=== PATIENT | male | born 1945 | race Caucasian/White ===

== ENCOUNTER → 2024-05-24 | Outpatient (CLI) | payer MEDICARE, SELFPAY ==
[2024-05-24 12:29] LABS: Absolute Lymphocyte Count 1.85 X10^3/uL (0.83-4.51); Absolute Neutrophil Count 3.6 X10^3/uL (2.0-7.7); Basophil# 0.03 X10^3/uL; Basophil% 0.5 % (0-1); Eosinophil# 0.22 X10^3/uL; Eosinophils% 3.5 % (0-5); Hematocrit 44.4 % (40-54); Hemoglobin 14.5 g/dL (13.0-16.5); Lymphocyte # 1.85 X10^3/ul (0.83-4.51); Lymphocyte % 29.7 % (19-41); Mean Corp Hgb Conc 32.7 g/dL (32-36); Mean Corpuscular Hgb 29.1 pg (27.0-32.0); Mean Corpuscular Volume 89.2 fL (80-94); Mean Platelet Vol. 10.3 fl (6.2-12.0); Monocyte# 0.46 X10^3/uL; Monocyte% 7.4 % (0-10); NRBC Flagged by Analyzer 0 % (0-5); Neutrophil # 3.64 X10^3/uL (2.7-7.7); Neutrophil % 58.6 % (47-70); Platelet Count 156 K/mm3 (150-450); RBC Distribution Width CV 14.6 % (11.6-14.6); RBC Distribution Width SD 47.6 fl (35.1-43.9); Red Blood Count 4.98 M/mm3 (4.6-6.2); White Blood Count 6.2 K/mm3 (4.4-11.0)
[2024-05-24 12:50] LABS: ALB/GLOB Ratio 1.1 RATIO (0.9-2.4); AST(SGOT) 19 U/L (15-37); Alanine Aminotransfer ALT/SGPT 23 U/L (16-61); Albumin, Serum 3.5 g/dL (3.2-5.0); Alkaline Phosphatase 66 U/L (45-117); Anion Gap 4 (5-15); BUN 12 mg/dL (7-18); BUN/Creat Ratio 14.1 RATIO (10-20); Calcium,Total 8.7 mg/dL (8.5-10.1); Chloride 109 mmol/L (98-107); Creatinine, Serum 0.85 mg/dL (0.70-1.30); EST Glomerular Filtration Rate 92 mL/min (>60); Est Glom Filt Rate - Afr Amer 111 mL/min (>60); Globulin 3.3 g/dL (2.2-4.2); Glucose 100 mg/dL (74-106); Potassium 4.3 mmol/L (3.5-5.1); Protein, Total 6.8 g/dL (6.4-8.2); Sodium Level 141 mmol/L (136-145)
== END | disposition home or self-care (01) ==
PROVIDERS: PCP Physician Assistant; Referring Provider Physician Assistant; Visit Provider Physician Assistant
DX: E78.5 Hyperlipidemia, unspecified (principal)
CPT/HCPCS: 36415; 80053; 85025

== ENCOUNTER → 2024-06-01 | Outpatient (CLI) | payer MEDICARE, SELFPAY ==
[2024-06-01 12:43] LABS: Cholesterol 214 mg/dL (200); High Density Lipoprotein 54 mg/dL; Triglycerides 123 mg/dL; Very Low Density Lipoprotein 25 mg/dL (5-40)
== END | disposition home or self-care (01) ==
LOC: BIMLAB 09:50
PROVIDERS: PCP Physician Assistant; Referring Provider Physician Assistant; Visit Provider Physician Assistant
DX: E78.5 Hyperlipidemia, unspecified (principal)
CPT/HCPCS: 36415; 80061

== ENCOUNTER 2025-05-22 06:58 | Observation (INO) | payer MEDICARE, SELFPAY ==
--- NOTE | 2025-04-27 08:02 | EKG12_ITS ---
Test Reason : PREOP Blood Pressure : */* mmHG Vent. Rate : 70 BPM Atrial Rate : 70 BPM P-R Int : 174 ms QRS Dur : 88 ms QT Int : 378 ms P-R-T Axes : 16 -20 51 degrees QTcB Int : 408 ms Normal sinus rhythm Normal ECG Confirmed by PRISCILLA FORD, TOYIN ([id number]), publications editor FREDRICK SKY ([id number]) on 04/28/2025 9:55:16 AM Referred By: Omi Patel Confirmed By: TOYIN WELLS MD
[2025-04-27 09:40] LABS: Hematocrit 42.7 % (40-54); Hemoglobin 14.4 g/dL (13.0-16.5); Immature Granulocytes Count 0.020 X10^3/uL (0.0-0.0); Mean Corp Hgb Conc 33.7 g/dL (32-36); Mean Corpuscular Volume 86.8 fL (80-94); Mean Platelet Vol. 10.0 fl (6.2-12.0); NRBC Flagged by Analyzer 0 % (0-5); Platelet Count 165 K/mm3 (150-450); RBC Distribution Width CV 14.5 % (11.6-14.6); RBC Distribution Width SD 45.7 fl (35.1-43.9); Red Blood Count 4.92 M/mm3 (4.6-6.2); White Blood Count 7.1 K/mm3 (4.4-11.0)
[2025-04-27 10:35] LABS: Albumin, Serum 4.1 g/dL (3.4-4.8); Anion Gap 10 (5-15); BUN 12 mg/dL (4-19); BUN/Creat Ratio 14.6 RATIO (10-20); Calcium,Total 9.5 mg/dL (7.6-11.0); Carbon Dioxide 24.0 mmol/L (21.0-32.0); Chloride 107 mmol/L (98-108); Glucose 101 mg/dL (70-99); Potassium 4.2 mmol/L (3.3-5.1)
[2025-04-28 08:28] LABS: Magnesium 2.3 mg/dL (1.5-2.2)
--- NOTE | 2025-05-14 21:41 | PCM.HP.BLA ---
History and Physical History and Physical? Patient Name: Edmundo Peters : 1945From:? OLGA BEASLEY PA-C? DATE OF PRE-OPERATIVE EXAM: 05/12/2025 DATE OF SURGERY:? 05/22/2025 SCHEDULED PROCEDURE:? Direct anterior right total hip arthroplasty HISTORY OF PRESENT ILLNESS: Preoperative history and physical exam was performed on May 12, 2025.? This is an 80-year-old male who has had ongoing pain for years in his right hip.? Pain is been intermittent, aching, and stabbing.? Pain is increased with prolonged standing.? He has difficulty putting on his socks and shoes and getting dressed.? He feels unsafe carrying heavy items down steps.? Pain is located in the right groin and right anterior thigh.? He has been treated with a past chiropractor for unequal leg lengths.? He has had shoe lift on the right side.? He feels that the right leg is shorter than the left.? He does not recall any previous trauma.? Patient does report back in 2007 picking up a heavy object experiencing knee pain at that time.? He has also had ongoing right knee pain.? Patient has tried physical therapy, home exercises and respiratory care assistant with minimal relief.? He has tried heat, elevation with minimal relief.? Patient has attempted Tylenol and turmeric with only temporary relief.? He has history of gastroesophageal reflux disease and essential tremor.? Denies past history of DVT or pulmonary embolism.? Denies past history of surgery on the right hip.? Patient has obtain surgical clearance from the primary care provider Nicole Flynn.? After failing conservative measures and discussing all treatment options with Dr. Omi Patel, the patient does wish to proceed with a direct anterior right total hip arthroplasty. REVIEW OF SYSTEMS: Review Of Systems: Constitutional: Denies change in appetite, fever and weight change. Cardiovasular: Denies chest pain, heart murmur and irregular heartbeat. Respiratory: Reports cough and wheezing, but denies pneumonia, shortness of breath and tuberculosis. Gastrointestinal: Reports heartburn, but denies constipation, diarrhea, nausea, rectal itching, bloody stools and vomiting. Musculoskeletal: Reports gait disturbance, pain, trouble walking and weakness, but denies leg swelling. Skin: Denies Raynaud's, history of shingles and tattoo. Neurological: Reports tremor but denies ambulatory dysfunction, dizziness and numbness/tingling. Psychiatric: Reports life satisfaction and stress, but denies anxiety and insomnia. Hematologic/Lymphatic: Denies anemia, bleeding/bruising tendency and past transfusion. Reviewed, no changes. PAST MEDICAL HISTORY: Advance Care Plan: Other Directive, LIVING WILL Effective Date: 03/20/2025 Other Directive, POA Effective Date: 03/20/2025 Past Medical History: Medical Problems: Covid- 19 - (2021) resulted in a chronic cough and wheezing? essential tremor, stress, Acid Reflux Accidents: None Surgical Hx: Hernia Repair - (1969) Cataracts - (2009) Anesthesia Complications: None Assistive Devices: Glasses Reviewed, no changes. 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 Personal Habits:? Cigarette Use: Never Smoked Cigarettes.Smokeless Tobacco: Never Used Smokeless Tobacco.E-Cigarette Use: Never used.Alcohol: Denies use.Drug Use: Denies Use.Enjoy Exercising: Daily. Reviewed, no changes. VITALS: Ht: 67 Wt: 173lb Wt k.473 BMI: 27.1 BP: 130/70 Pulse: 65 Resp: 15 T: 97.9 T: 36.6C Pain Level: 2/10 O2SatR: 99 ALLERGIES: Penicillins Sulfa opioid anangesics? MEDICATIONS: Fish Oil 1000 mg 1 by mouth every day, Collagen 500-50-0.8 mg daily, Selenium 200 mcg daily, [place] Citrate 5 % daily, Kelp 0.15 mg daily, [place] Carbonate 150 mg daily, Magnesium 250 mg 1 a day, QC Tumeric Complex 500 mg daily, Zinc 15 66 (15 Zn) MG daily, Vitamin E 90 MG (200 Unit) daily, Vanadyl Sulfate Hydrate? daily, Chromium Vitamin? daily PRE-OP EXAM:? General appearance:NORMAL? ? ? Other: Eyes: Conjunctivae and lids: NORMAL? Pupils: ERR Ears, Nose, Mouth, and Throat: NORMAL? Other: Inspection of lips, teeth and gums: NORMAL? ?Other: Neck: Examination of neck: no masses noted. Respiratory: Assessment of respiratory effort: NORMAL? ?Other: ?Auscultation of lungs: clear to auscultation no wheezes, rhonchi or rales. Cardiovascular:? Auscultation of heart: regular rate and rhythm, no murmurs, gallops or rubs. PHYSICAL EXAMINATION: On exam patient does walk with an antalgic gait.? Right hip is without erythema or signs of infection.? Tenderness to palpation along the lateral hip at the greater trochanteric region.? Hip flexion 95 with obligatory external rotation.? Internal rotation 10 and 25 external rotation on the left.? Upon lying down supine patient has approximately 1 cm leg length discrepancy however I do feel hip flexion contracture as patient is unable to flatten the right leg. 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 CAM lesion on the right femur.? Right leg appears 3 mm shorter than the left. IMPRESSION: 1.? Severe right hip osteoarthritis 2.? Essential tremor 3.? Gastroesophageal reflux disease 4.? Overweight with BMI 27.1 PLAN: Dr. Omi Patel did discuss and review with the patient all treatment options including surgical versus nonsurgical options.? I will continue plan established by Dr. Omi Patel.? Patient does wish to proceed with the above-stated procedure.? Potential risks, benefits, and complications of the procedure were discussed in detail including but not limited to , infection, nerve and blood vessel damage, persistent pain, numbness, tingling, paresthesias, blood clot, pulmonary embolism, and requirement for possible further surgery.? The patient expressed full understanding and has no further questions for the doctor.? Patient does agree to proceed with the above-stated procedure and has signed the surgery consent form. POST-OP MEDICATION PLAN: Pain Medications: Postoperative pain regimen will be initiated by Dr. Omi Patel in the hospital.? Patient states he has sensitivity to opioids.? I did advise him that we will try to use Tylenol and nonsteroidal anti-inflammatory for her primary pain control.? However we may need to use narcotic for breakthrough pain based on his pain levels.? He did voice understanding.? Patient has walker that he will bring to the hospital.? He has obtain surgical clearance. DVT Prophylaxis Plan:? Aspirin 81 mg twice daily for 4 weeks postoperatively.? Denies past history of DVT or pulmonary embolism.? Continue with JEN janine for 2 weeks postoperatively. This dictation was created using voice recognition software. Phonetic and/or grammatical errors may exist. ___? I have re-examined the patient.? There are no clinical changes since date of exam. ___? See progress notes for changes. ___? Dictated on admission Date: ? ? ?Time: Signature:
[2025-05-22] VITALS (12 sets, daily range): BP systolic 90–133; BP diastolic 66–84; PULSE 55–79; RESP 16–18; TEMP 36.2–36.9; O2SAT 96–100; BMI 25.9; BMI 26.0
--- OUTSIDE RECORDS SUMMARY | 2025-05-22 05:11 | XMS RPT_ITS | CCD ---
Author Organization [facility] Inform ion [facility] Care Team Providers Care Veterinary Pharmacologist Name Role Phone MAGED FORD, DR ALDAIR Gutiérrez Primary Care Physician HARRY HILL DO Primary Care Physician HARRY HILL DO Attending Unavailable HARRY HILL DO Primary Care Unavailable DELORIS MELVIN-PCB DESIGN ENGINEER, GEOFF Valadez Attending Un available MAGED FORD, DR ALDAIR Gutiérrez Primary Care Unavaila NICOLE Austin Attending Unavailable GREGORIO HAYWOOD Primary Care Unavailable NICOLE FLYNN Referring Unavailable GREGORIO HAYWOOD Primary Care Unavailable NICOLE FLYNN Attending Unavailable GREGORIO HAYWOOD Primary Care Unavailable Gee CHECKOUT SUPERVISOR, Nicole Primary Care Unavailable Omi Patel Attending Unavailable Omi Patel Referring Unavailable Aminah CANO, Jeyson Attending Unavailable Aminah CANO, Jeyson Referring Unavailable Aminah CANO, Jeyson Primary Care Unavailable Aminah CANO, Jeyson Attending Unavailable Aminah ACNO, Jeyson Referring Unavailable Aminah CANO, Jeyson Primary Care Unavailable Aminah CANO, Jeyson Attending Unavailable Aminah CANO, Jeyson Referring Unavailable Aminah CANO, Jeyson Primary Care Unavailable Allergies Allergy Classification Reported Allergen(s) Allergy Type Date of Onset Reaction(s) Facility (2 sources) Codeine; Translations: [codeine] Drug Allergy [facility] (2 sources) Penicillin; Translations: [penicillins] Drug Allergy [facility] (2 sources) Sulfonamides (Antibiotic); Translations: [sulfa drugs] Propensity to adverse reactions to drug [facility] (2 sources) Penicillins; Translations: [PENICILLINS] Propensity to adverse reactions to drug (disorder) 5 [facility] (2 sources) Sulfonamides (Antibiotic); Translations: [SULFA (SULFONAMIDE ANTIBIOTICS)] Propensity to adverse reactions to drug (disorder) 5 [facility] (1 source) Codeine Drug Allergy 5 [facility] Medications Current Medications Medication Drug Class(es) Dates Sig (Normalized) Sig (Original) acetaminophen 325 mg oral capsule (2 sources) Start: 04-08-2021 Tylenol 325 mg oral capsule Dose : 650 mg =, Oral, q4h, PRN Pain, scale 4-10, 0 Refill(s) Start Date: 04/08/21 Status: Ordered albuterol MDI (90 mcg/inh) CFC free inhalation aerosol (2 sources) Start: 07-09-2023 take 2 puff(s) by inhalation every four hours as needed for wheezing albuterol MDI (90 mcg/inh) CFC free inhalation aerosol 2 puff(s), Inhalation, q4h, PRN as needed for wheezing, # 18 gram(s), 11 Refill(s), Pharmacy: [facility]/pharmacy #[id number], Shortness of breath, 173.4, cm, 07/09/23 9:02:00 EST, Height, kg, 07/09/23 9:02:00 EST, Dosing Weight Start Date: 07/09/23 Status: Ordered Start: 04-01-2021 take 2 puff(s) by in halation every four hours as needed for wheezing albuterol MDI (90 mcg/inh) CFC free inhalation aerosol 2 puff(s), Inhalation, q4h, PRN as needed for wheezing, # 18 gram(s), 0 Refill(s), Pharmacy: [facility], Shortness of breath, 175, cm, 04/01/21 11:00:00 EDT, Height, kg, 04/01/21 11:00:00 EDT, Dosing Weight Start Date: 04/01/21 Status: Ordered Calcium (1 source) Phosphate Binder, Calcium Start: 08-05-2019 calcium (as carbonate) 600 mg oral tablet Dose : 600 mg = 1 tab(s), Oral, Daily, 0 Refill(s) Start Date: 08/05/19 Status: Ordered calcium carbonate 1500 mg oral tablet (1 source) Start: 08-05-2019 calcium (as carbonate) 600 mg oral tablet Dose : 600 mg = 1 tab(s), Oral, Daily, 0 Refill(s) Start Date: 08/05/19 Status: Ordered copper glycinate-zinc glycinate (2 sources) Start: 09-01-2019 take 1 capsule by mouth once daily copper glycinate-zinc glycinate Dose = 1 cap(s), Oral, qDay, 0 Refill(s) Start Date: 09/01/19 Status: Ordered Flonase 50 mcg/inh nasal spray (1 source) Start: 09-01-2019 take 1 dose nasal route once daily in the morning Flonase 50 mcg/inh nasal spray Dose = 2 spray(s), Nostril, each, qAM, # 9.9 mL, 11 Refill(s), Pharmacy: [facility], 174.5, cm, 09/01/19 9:11:00 EST, Height, kg, 09/01/19 9:11:00 EST, Dosing Weight Start Date: 09/01/19 Status: Ordered fluticasone propionate 0.05 mg/actuat metered dose nasal spray (1 source) Corticosteroid Start: 09-12-2021 take 1 dose nasal route once daily in the morning Flonase 50 mcg/inh nasal spray Dose = 2 spray(s), Nostril, each, qAM, # 9.9 mL, 11 Refill(s), Pharmacy: [facility], 175, cm, 09/12/21 9:22:00 EDT, Height, kg, 09/12/21 9:22:00 EDT, Dosing Weight Start Date: 09/12/21 Status: Ordered 12 hr guaiFENesin 1200 mg extended release oral tablet (2 sources) Start: 04-18-2021 take 1 mg by mouth every twelve hours Mucinex Max Strength 1200 mg oral tablet, extended release mg = tab(s), Oral, q12h, 0 Refill(s) Start Date: 04/18/21 Status: Ordered Magnesium (1 source) Start: 08-05-2019 Magnesium 250 mg tablet Dose : 250 mg = 1 tab(s), Oral, qDay, 0 Refill(s) Start Date: 08/05/19 Status: Ordered magnesium oxide 250 mg oral tablet (1 source) Start: 08-05-2019 Magnesium 250 mg tablet Dose : 250 mg = 1 tab(s), Oral, qDay, 0 Refill(s) Start Date: 08/05/19 Status: Ordered selenium 200 mcg oral tablet (2 sources) Start: 08-05-2019 selenium 200 mcg oral tablet Dose : 200 mcg = 1 tab(s), Oral, Daily, 0 Refill(s) Start Date: 08/05/19 Status: Ordered sildenafil 20 mg oral tablet (1 source) Phosphodiesterase 5 Inhibitor Start: 08-05-2019 take 1-5 tablets by mouth once daily as needed sildenafil 20 mg oral tablet See Instructions, Take 1 to 5 pills daily as needed for ED, # 30 tab(s), 5 Refill(s), Pharmacy: [facility], 174, cm, 08/05/19 11:00:00 EST, Height, kg, 08/05/19 11:00:00 EST, Dosing Weight Start Date: 08/05/19 Status: Ordered Vitamin D3 (2 sources) Start: 08-05-2019 Vitamin D3 Dose : 5,000 unit(s) = 1 cap(s), Oral, qWeek, 0 Refill(s) Start Date: 08/05/19 Status: Ordered Completed/Discontinued Medications Medication Drug Class(es) Dates Sig (Normalized) Sig (Original) apixaban 2.5 mg oral tablet (1 source) Factor Xa Inhibitor Start: 04-08-2021 End: 04-22-2021 Eliquis 2.5 mg oral tablet Dose : 2.5 mg = 1 tab(s), Oral, BID, # 28 tab(s), 0 Refill(s), Pharmacy: [facility], 175.3, cm, 04/02/21 21:15:00 EDT, Height, 70.6, kg, 04/02/21 21:15:00 EDT, Dosing Weight Start Date: 04/08/21 Stop Date: 04/22/21 Status: Ordered Problems Problem Classification Problem Date Documented Da te Episodic/Chronic Disorders of lipid metabolism (3 sources) Pure hypercholesterolemi a; Translations: [Hyperlipidemia, unspecified] Onset: 11-09-2024 08-05-2019 Chronic Heart valve disorders (2 sources) Mitral valve disorder 08-05-2019 Chronic Hyperplasia of prostate (1 source) Nocturia due to benign prostatic hypertrophy 06-17-2021 Chronic Osteoarthritis (3 sources) Degenerative joint disease involving multiple joints; Translations: [Unilateral primary osteoarthritis, right hip] Onset: 04-03-2025 08-05-2019 Chronic Other hereditary and degenerative nervous system conditions (2 sources) 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 Other male genital disorders (2 sources) Impotence 08-05-2019 Chronic Other male genital disorders (2 sources) Problem of prostate 08-05-2019 Episodic Other screening for suspected conditions (not mental disorders or infectious disease) (5 sources) Decreased testosterone level ; Translations: [Encounter for screening for lipoid disorders] Onset: 04-03-2025 08-05-2019 Episodic Screening and history of mental health and substance abuse codes (2 sources) Encounter for screening examination for other mental health and behavioral disorders; Translations: [Encounter for screening for depression] Onset: 04-03-2025 Episodic Unclassified (1 source) 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 Unclassified (1 source) Patient encounter status 04-29-2023 Unclassified (1 source) Pre-Op Exam Onset: 05-02-2025 Results Test Name Value Interpretation Reference Range Facility [facility] 05-02-2025 CNOV Office Visit (INTMWS ) CHAYO HALE ([id number]) 1945 M Date Time Provider Department 05/02/25 1:20 PM NICOLE FLYNN INTMWS During your visit today, we recorded the following information about you: Temperature Pulse Respiration Blood pressure 97.9 degrees 86/minute 14/minute 122/74 Weight 80.2 kg Nicole Flynn, SLOTTER OPERATOR.PCB DESIGN ENGINEER 05/02/2025 1:47 PM Signed 1CC: Patient presents with: Pre-Op Exam: Right hip-[place] ortho HPI Chayo Hale is a 80 year old male who presents today for pre-op evaluation. Surgical Procedure: anterior right total hip arthroplasty Date of Procedure: 05/22/25 Surgeon: Omi Patel MD PAT date: 04/25, 05/12 Diabetes No Hypertension requiring medication No Congestive Heart Failure No Current Smoker within 1 Year No COPD/asthma No RIVAS No Dialysis No Acute renal failure No Steroid use for chronic condition No Disseminated cancer No Review of Systems Constitutional: Negative for appetite change, chills, diaphoresis, fatigue and unexpected weight change. Respiratory: Negative for cough, chest tightness, shortness of breath and wheezing. Cardiovascular: Negative for chest pain, palpitations and leg swelling. Neurological: Negative for dizziness, syncope, weakness, light-headedness and headaches. History reviewed. No pertinent past medical history. PAST SURGICAL HISTORY Procedure Laterality Date REPAIR UMBILICAL HERNIA 1974 ALLERGIES Penicillins and Sulfa (Sulfonamide Antibiotics) MEDICATIONS ergocalciferol, vitamin D2, (VITAMIN D2 PO) Take 5,000 Units by mouth once daily. FISH OIL-DHA-EPA PO Take 2,000 mg by mouth once daily. COQ10, UBIQUINOL, PO Take 200 mg by mouth once daily. COLLAGEN MISC 1,000 mg once daily. SELENIUM PO Take 200 mg by mouth once daily. KELP PO Take 150 mcg by mouth once daily. Mccarthy Aspartate 5 mg cap Take 5 mg by mouth once daily. BORON ORAL Take 3 mg by mouth once daily. magnesium oxide (MAG-CAPS ORAL) Take 400 mg by mouth once daily. TURMERIC PO Take 500 mg by mouth once daily. ZINC ACETATE PO Take 50 mg by mouth once daily. VITAMIN E-400 ORAL Take 400 mg by mouth once daily. vanadyl sulfate (VANADYL ORAL) Take 10 mg by mouth once daily. CHROMIUM ORAL Take 200 mg by mouth once daily. albuterol HFA (PROVENTIL HFA) 90 mcg/actuation inhaler Inhale 2 puffs as instructed every 4 hours as needed for wheezing/shortness of breath. FAMILY HISTORY Problem Relation Age of Onset Arthritis Mother SOCIAL HISTORY[1] BP 122/74 Pulse 86 Temp 36.6 ?C (97.9 ?F) (Temporal) Resp 14 Wt 80.2 kg (176 lb 12.9 oz) SpO2 99% BMI 26.95 kg/m? Physical Exam Vitals reviewed. Constitutional: Appearance: Normal appearance. HENT: Head: Normocephalic and atraumatic. Mouth/Throat: Mouth: Mucous membranes are moist. Pharynx: Oropharynx is clear. Eyes: Conjunctiva/sclera: Conjunctivae normal. Cardiovascular: Rate and Rhythm: Normal rate and regular rhythm. Pulses: Normal pulses. Heart sounds: Normal heart sounds. No murmur heard. Pulmonary: Effort: Pulmonary effort is normal. Breath sounds: Normal breath sounds. No wheezing, rhonchi or rales. Abdominal: Palpations: Abdomen is soft. Tenderness: There is no abdominal tenderness. Lymphadenopathy: Cervical: No cervical adenopathy. Skin: General: Skin is warm and dry. Neurological: Mental Status: He is alert. Psychiatric: Mood and Affect: Mood normal. Diagnoses/Plan 1. Pre-operative evaluation Reviewed PAT results including EKG, CBC and BMP; results all normal There is no known pertinent medical condition which may affect jaki-operative course SOLIS risk: Patient is scheduled for a intermediate-risk procedure. Risk of 0.1% calculated using the NSQIP surgical risk calculator ASA class: ASA 1- Normal healthy patient Functional status: Independent The patient is medically optimized for surgery Nicole Flynn APRN.PCB DESIGN ENGINEER [1] Social History Tobacco Use Smoking status: Never Smokeless tobacco: Never Vaping Use Vaping status: Never Used Substance Use Topics Alcohol use: Never Drug use: Never Allergies As of Date: 05/02/2025 Noted Allergy Reaction PENICILLINS 04/03/2025 4 - Hives SULFA (SULFONAMIDE ANTIBIOTICS) 04/03/2025 8 - GI Upset Date Reviewed: 05/02/2025 Reviewed by: Nicole Flynn APRN.PCB DESIGN ENGINEER - Fully Assessed Reason for Visit: Pre-Op Exam [87] Cmt: Right hip-[place] ortho Primary Visit Diagnosis:Preop exam for internal medicine [Z01.818] Prescriptions as of 05/02/2025 - ergocalciferol, vitamin D2, (VITAMIN D2 PO) Take 5,000 Units by mouth once daily. - FISH OIL-DHA-EPA PO Take 2,000 mg by mouth once daily. - COQ10, UBIQUINOL, PO Take 200 mg by mouth once daily. - COLLAGEN MISC 1,000 mg once daily. - SELENIUM PO Take 200 mg by mouth once daily. - KELP PO Take 150 mcg by mouth once daily (more content not included)... Normal [facility] MRSA/SAID NASAL SCREENon MRSA+SAID SCRN Reason for Exam: PREOP MRSA MRSA Negative S. AUREUS S. aureus Negative Normal [facility] Comment on above: Performed By: #### L 100.0100, L500.2500, L501.1800, M100.651 #### [facility] [address] [place], [address] Magnesiumon 04-28-2025 Magnesium [Mass/Vol] 2.3 mg/dL High 1.5-2.2 [facility] Comment on above: Performed By: #### L 501.5200 #### [facility] [address] [place], [place], [id number] 12 Lead EKGon 04-27-2025 12 Lead EKG [facility] [address] [place] [address] 12 Lead EKG 04/27/25 0815 MR#: [id number] Acct: [id number] Name: CHAYO HALE Rep #: [id number] : 1945 80 From: Adarsh Morley MD Attending Dr: Dr. Omi Patel MD Status: PRE [facility] Order[facility] Dr: Omi Patel MD Date: 04/27/25 Location: [facility] Sex: M C Admitted: Test Reason : PREOP Blood Pressure : */* mmHG Vent. Rate : 70 BPM Atrial Rate : 70 BPM P-R Int : 174 ms QRS Dur : 88 ms QT Int : 378 ms P-R-T Axes : 16 -20 51 degrees QTcB Int : 408 ms Normal sinus rhythm Normal ECG Confirmed by ADARSH MORLEY MD ([id number]), society editor FREDRICK SKY ([id number]) on 04/28/2025 9:55:16 AM Referred By: Omi Patel Confirmed By: ADARSH MORLEY MD 04/28/25 0955 Date Adarsh Morley MD CC: HERLINDA Rivera Older; Dr. Omi Patel MD Signed Normal [facility] Albumin, Serumon 04-27-2025 Albumin [Mass/Vol] 4.1 g/dL Normal 3.4-4.8 [facility] Comment on above: Performed By: #### L 100.0100, L500.2500, L501.1800, M100.651 #### [facility] [address] [place], [address] Basic Metabolic Profile (BMP )on 04-27-2025 BUN/CRE 14.6 RATIO Normal - [facility] Comment on above: Performed By: #### L 100.0100, L500.2500, L501.1800, M100.651 #### [facility] [address] [place], [address] Calcium [Mass/Vol] 9.5 mg/dL Normal 7.6-11.0 [facility] Comment on above: Performed By: #### L 100.0100, L500.2500, L501.1800, M100.651 #### [facility] [address] [place], [address] Chloride [Moles/Vol] 107 mmol/L Normal 98-108 [facility] Comment on above: Performed By: #### L 100.0100, L500.2500, L501.1800, M100.651 #### [facility] [address] [place], [address] CO2 [Moles/Vol] 24.0 mmol/L Normal 21.0-32.0 [facility] Comment on above: Performed By: #### L 100.0100, L500.2500, L501.1800, M100.651 #### [facility] [address] [place], [address] Creatinine [Mass/Vol] 0.82 mg/dL Normal 0.70-1.20 [facility] Comment on above: Performed By: #### L 100.0100, L500.2500, L501.1800, M100.651 #### [facility] [address] [place], [address] GAP 10 Normal 5-15 [facility] Comment on above: Performed By: #### L 100.0100, L500.2500, L501.1800, M100.651 #### [facility] [address] [place], [address] GFR/1.73 sq M.predicted among non-blacks MDRD (S/P/Bld) [Vol rate/Area] 88 mL/min/{1.73_m2} Normal >60 [facility] Comment on above: Result Comment: mL/m in/1.73m2 CKD-EPI Creatinine Equation (2020) Performed By: #### L 100.0100, L500.2500, L501.1800, M100.651 #### [facility] [address] [place], [address] Glucose [Mass/Vol] 101 mg/dL High 70-99 [facility] Comment on above: Performed By: #### L 100.0100, L500.2500, L501.1800, M100.651 #### [facility] [address] [place], [address] Potassium [Moles/Vol] 4.2 mmol/L Normal 3.3-5.1 [facility] Comment on above: Performed By: #### L 100.0100, L500.2500, L501.1800, M100.651 #### [facility] [address] [place], [address] Sodium [Moles/Vol] 141 mmol/L Normal 133-145 [facility] Comment on above: Performed By: #### L 100.0100, L500.2500, L501.1800, M100.651 #### [facility] [address] [place], [address] Urea nitrogen [Mass/Vol] 12 mg/dL Normal 4-19 [facility] Comment on above: Performed By: #### L 100.0100, L500.2500, L501.1800, M100.651 #### [facility] [address] [place], [address] CBC W/Diff, Automatedon 10-3 0-2025 Absolute Lymph 1.50 X10 3/uL Normal 0.83-4.51 [facility] Comment on above: Performed By: #### L 100.0100, L500.2500, L501.1800, M100.651 #### [facility] [address] [place], [address] Absolute Neut 4.7 X10 3/uL Normal 2.0-7.7 [facility] Comment on above: Performed By: #### L 100.0100, L500.2500, L501.1800, M100.651 #### [facility] [address] [place], [address] Basophils/100 WBC (Bld) 0.8 % Normal 0-1 [facility] Comment on above: Performed By: #### L 100.0100, L500.2500, L501.1800, M100.651 #### [facility] [address] [place], [address] Eosinophils/100 WBC (Bld) 3.4 % Normal 0-5 [facility] Comment on above: Performed By: #### L 100.0100, L500.2500, L501.1800, M100.651 #### [facility] [address] [place], [address] Erythrocyte distribution width (RBC) [Ratio] 14.5 % Normal 11.6-14.6 [facility] Comment on above: Performed By: #### L 100.0100, L500.2500, L501.1800, M100.651 #### [facility] [address] [place], [address] Hematocrit (Bld) [Volume fraction] 42.7 % Normal 40-54 [facility] Comment on above: Performed By: #### L 100.0100, L500.2500, L501.1800, M100.651 #### [facility] [address] [place], [address] Hemoglobin (Bld) [Mass/Vol] 14.4 g/dL Normal 13.0-16.5 [facility] Comment on above: Performed By: #### L 100.0100, L500.2500, L501.1800, M100.651 #### [facility] [address] [place], [address] IG% 0.300 Normal 0.0-0.9 [facility] Comment on above: Result Comment: IG% - Immature Granulocytes (promyelocytes, myelocytes and metamyelocytes) > 1% indicates that a LEFT SHIFT is Present. Performed By: #### L 100.0100, L500.2500, L501.1800, M100.651 #### [facility] [address] [place], [address] Lymphocytes/100 WBC (Bld) 21.1 % Normal 19-41 [facility] Comment on above: Performed By: #### L 100.0100, L500.2500, L501.1800, M100.651 #### [facility] [address] [place], [address] MCH (RBC) [Entitic mass] 29.3 pg Normal 27.0-32.0 [facility] Comment on above: Performed By: #### L 100.0100, L500.2500, L501.1800, M100.651 #### [facility] [address] [place], [address] MCHC (RBC) [Mass/Vol] 33.7 g/dL Normal 32-36 [facility] Comment on above: Performed By: #### L 100.0100, L500.2500, L501.1800, M100.651 #### [facility] [address] [place], [address] MCV (RBC) [Entitic vol] 86.8 fL Normal 80-94 [facility] Comment on above: Performed By: #### L 100.0100, L500.2500, L501.1800, M100.651 #### [facility] [address] [place], [address] Monocytes/100 WBC (Bld) 7.6 % Normal 0-10 [facility] Comment on above: Performed By: #### L 100.0100, L500.2500, L501.1800, M100.651 #### [facility] [address] [place], [address] Neutrophils/100 WBC (Bld) 66.8 % Normal 47-70 [facility] Comment on above: Performed By: #### L 100.0100, L500.2500, L501.1800, M100.651 #### [facility] [address] [place], [address] Nucleated RBC (Bld) [#/Vol] 0 10*3/uL Normal 0-5 [facility] Comment on above: Performed By: #### L 100.0100, L500.2500, L501.1800, M100.651 #### [facility] [address] [place], [address] Platelet mean volume (Bld) [Entitic vol] 10.0 fL Normal 6.2-12.0 [facility] Comment on above: Performed By: #### L 100.0100, L500.2500, L501.1800, M100.651 #### [facility] [address] [place], [address] Platelets (Bld) [#/Vol] 165 10*3/uL Normal 150-450 [facility] Comment on above: Performed By: #### L 100.0100, L500.2500, L501.1800, M100.651 #### [facility] [address] [place], [address] RBC (Bld) [#/Vol] 4.92 10*6/uL Normal 4.6-6.2 [facility] Comment on above: Performed By: #### L 100.0100, L500.2500, L501.1800, M100.651 #### [facility] [address] [place], [address] RDW SD 45.7 fl High 35.1-43.9 [facility] Comment on above: Performed By: #### L 100.0100, L500.2500, L501.1800, M100.651 #### [facility] [address] [place], [address] WBC (Bld) [#/Vol] 7.1 10*3/uL Normal 4.4-11.0 [facility] Comment on above: Performed By: #### L 100.0100, L500.2500, L501.1800, M100.651 #### [facility] [address] [place], [address] Comprehensive metabolic 2000 panelon 04-04-2025 Albumin [Mass/Vol] 4.1 g/dL Normal 3.9-4.9 [facility] Comment on above: Order Comment: Speci men Type: BLOOD SPECIMEN Ordering Facility: [facility] Address: [address] [place] [address] Performed By: #### 2 4331-1, 67871-4 #### [facility] CLIA [id number] [address] [place] [address] [place] ALP [Catalytic activity/Vol] 69 U/L Normal 38-113 [facility] Comment on above: Order Comment: Speci men Type: BLOOD SPECIMEN Ordering Facility: [facility] Address: [address] [place] [address] Performed By: #### 2 4331-1, 01559-9 #### [facility] CLIA [id number] [address] [place], [place] [id number] [place] ALT [Catalytic activity/Vol] 18 U/L Normal 10-54 [facility] Comment on above: Order Comment: Speci men Type: BLOOD SPECIMEN Ordering Facility: [facility] Address: [address] [place] [address] Performed By: #### 2 4331-1, 21453-5 #### [facility] CLIA [id number] [address] [place], [place] [id number] [place] Anion gap [Moles/Vol] 12 mmol/L Normal 8-[address] [facility] Comment on above: Order Comment: Speci men Type: BLOOD SPECIMEN Ordering Facility: [facility] Address: [address] [place] [address] Performed By: #### 2 4331-1, 14745-2 #### [facility] CLIA [id number] [address] [place], [place] [id number] [place] AST [Catalytic activity/Vol] 26 U/L Normal 14-40 [facility] Comment on above: Order Comment: Speci men Type: BLOOD SPECIMEN Ordering Facility: [facility] Address: [address] [place], [place] [address] Performed By: #### 2 4331-1, 10522-4 #### [facility] CLIA [id number] [address] [place], [place] [id number] [place] Bilirubin [Mass/Vol] 0.9 mg/dL Normal 0.2-1.3 [facility] Comment on above: Order Comment: Speci men Type: BLOOD SPECIMEN Ordering Facility: [facility] Address: [address] [place] [address] Performed By: #### 2 4331-1, 78454-9 #### [facility] CLIA [id number] [address] [place] [address] [place] Calcium [Mass/Vol] 9.5 mg/dL Normal 8.5-10.2 [facility] [facility] Comment on above: Order Comment: Speci men Type: BLOOD SPECIMEN Ordering Facility: [facility] Address: [address] [place] [address] Performed By: #### 2 4331-1, 33058-6 #### [facility] CLIA [id number] [address] [place] [address] [place] Chloride [Moles/Vol] 106 mmol/L Normal 98-107 [facility] Comment on above: Order Comment: Speci men Type: BLOOD SPECIMEN Ordering Facility: [facility] Address: [address] [place] [address] Performed By: #### 2 4331-1, 35209-7 #### [facility] CLIA [id number] [address] [place] [address] [place] CO2 [Moles/Vol] 24 mmol/L Normal 22-30 [facility] Comment on above: Order Comment: Speci men Type: BLOOD SPECIMEN Ordering Facility: [facility] Address: [address] [place] [address] Performed By: #### 2 4331-1, 08471-3 #### [facility] CLIA [id number] [address] [place] [address] [place] Creatinine [Mass/Vol] 0.93 mg/dL Normal 0.73-1.[address] [facility] Comment on above: Order Comment: Speci men Type: BLOOD SPECIMEN Ordering Facility: [facility] Address: [address] [place] [address] Performed By: #### 2 4331-1, 01325-3 #### [facility] CLIA [id number] [address] [place] [address] [place] eGFRcr SerPlBld CKD-EPI 2020 82 mL/min/1.73m??? Normal >=60 [facility] Comment on above: Order Comment: Dorie cullen Type: BLOOD SPECIMEN Ordering Facility[facility] Address: [address] [place] [address] Result Comment: Theresa mated Glomerular Filtration Rate (eGFR) is calculated using the 2020 CKD-EPI creatinine equation. This equation utilizes serum creatinine, sex, and age as parameters. The creatinine assay has traceable calibration to isotope dilution-mass spectrometry. Refer to KDIGO guidelines for clinical interpretation. In patients with unstable renal function, e.g. those with acute kidney injury, the eGFR may not accurately reflect actual GFR. Performed By: #### 2 4331-1, 67550-0 #### [facility] CLIA [id number] [address] [place] [address] [place] Glucose [Mass/Vol] 92 mg/dL Normal 74-99 [facility] Comment on above: Order Comment: Dorie cullen Type: BLOOD SPECIMEN [facility] Address: [address] [place] [address] Result Comment: The [place] Diabetes Association (ADA) provides guidance for cutoff values for fasting glucose and random glucose. The ADA defines fasting as no caloric intake for at least 8 hours. Fasting plasma glucose results between 100 to 125 mg/dL indicate increased risk for diabetes (prediabetes). Fasting plasma glucose results greater than or equal to 126 mg/dL meet the criteria for diagnosis of diabetes. In the absence of unequivocal hyperglycemia, results should be confirmed by repeat testing. In a patient with classic symptoms of hyperglycemia or hyperglycemic crisis, random plasma glucose results greater than or equal to 200 mg/dL meet the criteria for diagnosis of diabetes. Reference: Standards of Medical Care in Diabetes 2016, [place] Diabetes Association. Diabetes Care. 2016.39(Suppl 1). Performed By: #### 2 4331-1, #### [facility] CLIA [id number] [address] [place] [address] [place] Potassium [Moles/Vol] 4.4 mmol/L Normal 3.7-5.[address] [facility] Comment on above: Order Comment: Speci men Type: BLOOD SPECIMEN [facility] Facility[facility] Address: [address] [place] [address] Performed By: #### 2 4331-, #### [facility] CLIA [id number] [address] [place], [place] [id number] [place] Protein [Mass/Vol] 6.7 g/dL Normal 6.3-8.0 [facility] Comment on above: Order Comment: Speci men Type: BLOOD SPECIMEN [facility] Address: [address] [place] [address] Performed By: #### 2 4331-, #### [facility] CLIA [id number] [address] [place], [place] [id number] [place] Sodium [Moles/Vol] 142 mmol/L Normal 136-144 [facility] Comment on above: Order Comment: Speci men Type: BLOOD SPECIMEN [facility] Address: [address] [place] [address] Performed By: #### 2 4331-, #### [facility] CLIA [id number] [address] [place] [address] [place] Urea nitrogen [Mass/Vol] 12 mg/dL Normal 9-24 [facility] Comment on above: Order Comment: Speci men Type: BLOOD SPECIMEN Ordering Facility[facility] Address: [address] [place], [place] [address] Performed By: #### 2 4331-1, #### [facility] CLIA [id number] [address] [place], [place] [id number] [place] Lipid 1996 panelon 5 Cholesterol [Mass/Vol] 213 mg/dL High <200 [facility] Comment on above: Order Comment: Speci men Type: BLOOD SPECIMEN Ordering Facility[facility] Address: [address] [place] [address] Result Comment: <200 mg/dL, Desirable 200-239 mg/dL, Borderline high >239 mg/dL, High Performed By: #### 2 4331-1, 17841-8 #### [facility] CLIA [id number] [address] [place] [address] [place] Cholesterol in HDL [Mass/Vol] 51 mg/dL Normal >39 [facility] Comment on above: Order Comment: Dionisioi men Type: BLOOD SPECIMEN Order[facility] Address: [address] [place] [address] Result Comment: 40-5 9 mg/dL, Acceptable >59 mg/dL, High: Negative risk factor for coronary heart disease <40 mg/dL, Low: Positive risk factor for coronary heart disease Performed By: #### 2 4331-1, 92086-2 #### [facility] CLIA [id number] [address] [place] [address] [place] Cholesterol in LDL [Mass/Vol] 147 mg/dL High <100 [facility] Comment on above: Order Comment: Speci men Type: BLOOD SPECIMEN Order[facility] Address: [address] [place] [address] Result Comment: <100 mg/dL, Optimal 100-129 mg/dL, Near optimal/above optimal 130-159 mg/dL, Borderline high 160-189 mg/dL, High >189 mg/dL, Very high Secondary prevention optimal LDL Cholesterol levels are recommended to be <70 mg/dL LDL cholesterol is calculated using the Short-NIH equation. Performed By: #### 2 4331-1, 98576-7 #### [facility] CLIA [id number] [address] [place] [address] [place] Cholesterol in LDL/Cholesterol in HDL [Mass ratio] 2.88 {ratio} High <2.54 [facility] Comment on above: Order Comment: Dorie cullen Type: BLOOD SPECIMEN Order[facility] Address: [address] [place] [address] Result Comment: Malik epstein: 1. National Cholesterol Education Program ATP III Guideline At-A-Glance Quick Desk Reference: National Heart, Lung, and Blood [place]. National Institutes of Health. 2001: NIH Publication No. 01-3305. 2. An International Atherosclerosis Society position paper: global recommendations for the management of dyslipidemia: executive summary, Atherosclerosis. 2014: 232(2):410-413. Performed By: #### 2 4331-1, 33486-9 #### [facility] CLIA [id number] [address] [place] [address] [place] Cholesterol in VLDL [Mass/Vol] 15 mg/dL Normal <30 [facility] Comment on above: Order Comment: Dorie cullen Type: BLOOD SPECIMEN [facility] Address: [address] [place] [address] Performed By: #### 2 4331-1, 96192-5 #### [facility] CLIA [id number] [address] [place] [address] [place] Cholesterol non HDL [Mass/Vol] 162 mg/dL High <130 [facility] Comment on above: Order Comment: Dorie cullen Type: BLOOD SPECIMEN Order[facility] Address: [address] [place] [address] Result Comment: <130 mg/dL, Optimal 130-159 mg/dL, Near optimal/above optimal 160-189 mg/dL, Borderline high 190-219 mg/dL, High >219 mg/dL, Very high Secondary prevention optimal non HDL Cholesterol levels are recommended to be <100 mg/dL Performed By: #### 2 4331-1, 98526-8 #### [facility] CLIA [id number] [address] [place] [address] [place] Cholesterol.total/Cho lesterol in HDL [Mass ratio] 4.18 {ratio} Normal <5.10 [facility] Comment on above: Order Comment: Speci men Type: BLOOD SPECIMEN [facility] Address: [address] [place] [address] Performed By: #### 2 4331-1, 92014-2 #### [facility] CLIA [id number] [address] [place] [address] [place] FASTING TIME 12 hrs Normal [facility] Comment on above: Order Comment: Speci men Type: BLOOD SPECIMEN [facility] Address: [address] [place] [address] Performed By: #### 2 4331-1, 81032-4 #### [facility] CLIA [id number] [address] [place] [address] [place] Triglyceride [Mass/Vol] 83 mg/dL Normal <150 [facility] Comment on above: Order Comment: Speci men Type: BLOOD SPECIMEN Order[facility] Address: [address] [place] [address] Result Comment: <150 mg/dL, Normal 150-199 mg/dL, Borderline high 200-499 mg/dL, High >499 mg/dL, Very high Performed By: #### 2 4331-1, 99151-6 #### [facility] CLIA [id number] [address] [place] [address] [place] CNOVon 04-03-2025 CNOV Office Visit (INTMWS ) CHAYO HALE ([id number]) 1945 [place] Date Time Provider Department 04/03/25 10:00 AM NICOLE FLYNN INTMWS During your visit today, we recorded the following information about you: Pulse Respiration Blood pressure Weight 76/minute 14/minute 128/84 79.7 kg Height 1.725 m Nicole Flynn, OLEGARIO.PCB DESIGN ENGINEER 04/03/2025 10:37 AM Signed Chayo Hale is a 80 year old male here for a Medicare wellness visit. Medicare Health Risk Assessment General Health Excellent Exercise: Minutes/Day 40 min Exercise: Days/Week 7 days Alcohol: Daily Use Monthly or less Alcohol: Drinks/Day 1 or 2 Alcohol: 6 or more drinks Never Feel off balance No Concerns: Teeth/Dentures No Concerns: Sexual function No Troubled by feelings None of the above Frequency: Eating healthy diet Nearly every day ADLs requiring help None of the above Safety precautions in home/vehicle Yes Smoke, vape, chews tobacco No Difficulty hearing Yes Difficulty seeing No Current Providers Specialists: I have reviewed specialist-related care of the patient in the medical record. Current care team: Patient Care Team: Gregorio Haywood MD as PCP - General (Internal Medicine) [facility] Medical/Family history review Reviewed and updated problem list, medical/surgical/fami ly/social history, medications, and allergies. Opioid use review Opioid Medications (last 90 days) No data to display Anxiety/Depression screening PHQ-2 Score: 0 (Lower risk for depression) TREMAINE-2 Score: 0 (Lower risk for anxiety) Recommendation: no further intervention at this time Cognitive screening Cognitive screening reviewed and Patient declined Mini-Cog test. Functional Observation Was the patient's Timed Up AND Go test unsteady or >= 12 seconds? No Advance Care Planning Patient was not able to provide a surrogate decision maker or written advance directives Measurements BP 132/80 Pulse 76 Resp 14 Ht 172.5 cm (5' 7.91) Wt 79.7 kg (175 lb 11.3 oz) SpO2 97% BMI 26.78 kg/m? Vision Screening: Follows with optometry/ophthalmolo gy Assessment/Plan Medicare annual wellness visit, subsequent (00.) - Counseled on healthy diet and regular exercise - Fall avoidance information provided - Personalized prevention plan provided 2. Arthritis of right hip: Patient reports right hip pain from ?bone on bone? changes and has an appointment on the with [facility] for possible surgical intervention. 3. Encounter for screening examination for other mental health and behavioral disorders: TREMAINE=0 4. Screening for depression: PHQ=0 5. Encounter for lipid screening for cardiovascular disease: Fasting lipid panel ordered 6. Encounter for screening for diabetes mellitus: Fasting blood work ordered Prescription instructions reviewed with patient as applicable. Potential red flag symptoms discussed with the patient. Reviewed appropriate action plan to take if red flag symptoms occur. Patient agreeable to treatment plan. YANET Sheppard Naz M, APRN.CNP 04/03/2025 10:29 AM Addendum WHAT YOU CAN DO TO PREVENT FALLS Many falls can be prevented. By making some changes, you can lower your chances of falling. Four things YOU can do to prevent falls for you* and your caregiver 1. Begin a regular exercise program Exercise is one of the most important ways to lower your chances of falling. It makes you stronger and helps you feel better. Exercises that improve balance and coordination (like Ran Chi) are the most helpful. Lack of exercise leads to weakness and increases your chances of falling. Ask your doctor or health care provider about the best type of exercise program for you. 2. Have your health care provider review your medicines Have your doctor or pharmacist review all the medicines you take, even ermk-lay-zqwwxbu medicines. As you get older, the way medicines work in your body can change. Some medicines, or combinations of medicines, can make you sleepy or dizzy and can cause you to fall. 3. Have your vision checked Have your eyes checked by an eye doctor at least once a year. You may be wearing the wrong glasses or have a condition like glaucoma or cataracts that limits your vision. Poor vision can increase your chances of falling. 4. Make your home safer About half of all falls happen at home. To make your home safer: Remove things you can trip over (like papers, books, clothes, and shoes) from stairs and places where you walk. Remove small throw rugs or use double-sided tape to keep the rugs from slipping. Keep items you use often in cabinets you can reach easily without using a step stool. Have grab bars put in next to your toilet and in the tub or shower. Use non-slip mats in the bathtub and on shower floors. Improve the light (more content not included)... Normal [facility] Internal Medicine Office Vis richar 06-01-2024 Internal Medicine Office Visit [facility] [address] [place], [place] [address] OFFICE VISIT Date of Service: 06/01/24 MR#: [id number] Acct: [id number] Name: CHAYO HALE Rep #: [id number] : 1945 Provider: RACHAEL Crook Age/Sex: 79/M Location: [facility] Status: Signed Intake Vital Signs 12/15/23 10:56 06/01/24 08:55 Height 5 ft 9 in 5 ft 9 in Weight: 176 lb 4 oz 171 lb BMI 26.0 25.2 BP 124/68 H 118/78 Blood Pressure Location Lt brachial Lt brachial Position Sitting Sitting Respiration 16 16 Pulse 72 77 Pulse Source Monitor Monitor Temp 97.4 F L 97.6 F L Temp Source Temporal Temporal Pulse Oximetry (%) 99 99 Oxygen Delivery Method room air room air Intake Visit Reasons: FOLLOW UP 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 Accompanied by: Self Is patient in pain?: No Allergies codeine Allergy (Mild, Verified 06/01/24 08:51) hives Penicillins Allergy (Mild, Verified 06/01/24 08:51) hives Sulfa (Sulfonamide Antibiotics) (sulfa drugs) Allergy (Mild, Verified 06/01/24 08:51) hives Medications ???Medication ???Instructions ???Recorded ???Confirmed ???Type albuterol sulfate 90 mcg/actuation inhalation 12/15/23 06/01/24 History aerosol inhaler cholecalciferol (vitamin D3) 25 25 mcg PO DAILY 12/15/23 06/01/24 History mcg (1,000 unit) capsule coenzyme Q10 75 mg capsule (Ultra 75 mg PO DAILY 12/15/23 06/01/24 History CoQ10) collagen,hydrolysate 500 mg-biotin cap PO 12/15/23 06/01/24 History 800 mcg-ascorbic acid 50 mg capsule (Collagen 1500 Plus C) ferrous sulfate 325 mg (65 mg 325 mg PO DAILY 12/15/23 06/01/24 History iron) tablet (Iron (ferrous sulfate)) magnesium aspart,citrate,oxide mg PO 12/15/23 06/01/24 History omega 7-skd-nbs-fish oil 60 mg-90 1 cap PO DAILY 12/15/23 06/01/24 History mg-500 mg capsule (Fish Oil) selenium 200 mcg capsule 200 mcg PO DAILY 12/15/23 06/01/24 History turmeric PO 12/15/23 06/01/24 History vitamin E mixed 400 unit capsule unit PO 12/15/23 06/01/24 History zinc glycinate 20 mg capsule 20 mg PO DAILY 12/15/23 06/01/24 History Have you fallen in the past year?: No PFSH Surgical History H/O eye surgery H/O hernia repair Family History Brother Cancer skin, prostate,bone Social History household members: spouse housing: house current occupational status: retired Smoking Status: Never smoker alcohol intake: never substance use type: does not use what type of physical activity do you participate in: walking 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 He states that he has been taking fish oil and actually increased the fish oil. Patient states that overall he is doing great without any concerns or complaints. Patient states that he continues with his supplement regimen taking multiple vitamin supplements which he states he is done for quite a long time. He remains very physically active especially for his age doing both cardiorespiratory activities as well as weight training. 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 As discussed before is a very healthy diet eating really no processed or ultra processed meals doing lots of continued fruits and vegetables. 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 He does think though that maybe he has a little bit of a tremor from the pesticides. Patient did have recent blood work done and would like to go over that today (I do see though that the lipid was not done which is really probably the most important thing we wanted to see). Patient did have some questions regarding testosterone at his age. He was not sure that this is something that he should have checked or not. Also on his labs a year ago there was a PSA done and therefore has been a year since he had that done ROS Const Constitutional: No body ache, chills, excessive sweating, fatigue, fever(s), frequent falls, headache(s), snoring, weakness or change in appetite Eyes Eyes: No blurry vision, change in vision, eye pain or Light sensitivity ENT ENT: No abnormal hearing, ear or mastoid pain, tinnitus, nasal congestion, headache(s), neck pain or sore throat Resp Respiratory: No cough, shortness of breath, snoring or wheezing Cardio Cardiology: No ch (more content not included)... Normal [facility] Lipid Profileon 06-01-2024 Cholesterol [Mass/Vol] 214 mg/dL High 200 [facility] Comment on above: Result Comment: <200 mg/dL Desirable 200-240 mg/dL Borderline >240 mg/dL High Risk Performed By: #### L 500.4100 #### [facility] [address] [place], [address] Cholesterol in HDL [Mass/Vol] 54 mg/dL Normal [facility] Comment on above: Result Comment: The drugs N-Acetylcysteine and Metamizole may falsely depress this assay. Reference Range HDL <40 mg/dL Low HDL Cholesterol HDL >or= 60 mg/dL High HDL Cholesterol Performed By: #### L 500.4100 #### [facility] [address] [place], [address] Cholesterol in LDL [Mass/Vol] 135 mg/dL High 0-130 [facility] Comment on above: Performed By: #### L 500.4100 #### [facility] [address] [place], [address] Cholesterol in VLDL [Mass/Vol] 25 mg/dL Normal 5-40 [facility] Comment on above: Performed By: #### L 500.4100 #### [facility] [address] [place], [address] Triglyceride [Mass/Vol] 123 mg/dL Normal [facility] Comment on above: Result Comment: The drugs N-Acetylcysteine and Metamizole may falsely depress this assay. Serum Triglycerides Reference Interval Normal <150 mg/dL Borderline high 150 - 199 mg/dL High 200 - 499 mg/dL Very High > or = 500 mg/dL Performed By: #### L 500.4100 #### [facility] [address] [place], [address] CBC W/Diff, Automatedon 11- Absolute Lymph 1.85 X10 3/uL Normal 0.83-4.51 [facility] Comment on above: Performed By: #### L 100.0100, L500.4050 #### [facility] [address] [place], [address] Absolute Neut 3.6 X10 3/uL Normal 2.0-7.7 [facility] Comment on above: Performed By: #### L 100.0100, L500.4050 #### [facility] [address] [place], [address] Basophils/100 WBC (Bld) 0.5 % Normal 0-1 [facility] Comment on above: Performed By: #### L 100.0100, L500.4050 #### [facility] [address] [place], [address] Eosinophils/100 WBC (Bld) 3.5 % Normal 0-5 [facility] Comment on above: Performed By: #### L 100.0100, L500.4050 #### [facility] [address] [place], [address] Erythrocyte distribution width (RBC) [Ratio] 14.6 % Normal 11.6-14.6 [facility] Comment on above: Performed By: #### L 100.0100, L500.4050 #### [facility] [address] [place], [address] Hematocrit (Bld) [Volume fraction] 44.4 % Normal 40-54 [facility] Comment on above: Performed By: #### L 100.0100, L500.4050 #### [facility] [address] [place], [address] Hemoglobin (Bld) [Mass/Vol] 14.5 g/dL Normal 13.0-16.5 [facility] Comment on above: Performed By: #### L 100.0100, L500.4050 #### [facility] [address] [place], [address] IG% 0.300 Normal 0.0-0.9 [facility] Comment on above: Result Comment: IG% - Immature Granulocytes (promyelocytes, myelocytes and metamyelocytes) > 1% indicates that a LEFT SHIFT is Present. Performed By: #### L 100.0100, L500.4050 #### [facility] [address] [place], [address] Lymphocytes/100 WBC (Bld) 29.7 % Normal 19-41 [facility] Comment on above: Performed By: #### L 100.0100, L500.4050 #### [facility] [address] [place], [address] MCH (RBC) [Entitic mass] 29.1 pg Normal 27.0-32.0 [facility] Comment on above: Performed By: #### L 100.0100, L500.4050 #### [facility] [address] [place], [address] MCHC (RBC) [Mass/Vol] 32.7 g/dL Normal 32-36 [facility] Comment on above: Performed By: #### L 100.0100, L500.4050 #### [facility] [address] [place], [address] MCV (RBC) [Entitic vol] 89.2 fL Normal 80-94 [facility] Comment on above: Performed By: #### L 100.0100, L500.4050 #### [facility] [address] [place], [address] Monocytes/100 WBC (Bld) 7.4 % Normal 0-10 [facility] Comment on above: Performed By: #### L 100.0100, L500.4050 #### [facility] [address] [place], [address] Neutrophils/100 WBC (Bld) 58.6 % Normal 47-70 [facility] Comment on above: Performed By: #### L 100.0100, L500.4050 #### [facility] [address] [place], [address] Nucleated RBC (Bld) [#/Vol] 0 10*3/uL Normal 0-5 [facility] Comment on above: Performed By: #### L 100.0100, L500.4050 #### [facility] [address] [place], [address] Platelet mean volume (Bld) [Entitic vol] 10.3 fL Normal 6.2-12.0 [facility] Comment on above: Performed By: #### L 100.0100, L500.4050 #### [facility] [address] [place], [address] Platelets (Bld) [#/Vol] 156 10*3/uL Normal 150-450 [facility] Comment on above: Performed By: #### L 100.0100, L500.4050 #### [facility] [address] [place], [address] RBC (Bld) [#/Vol] 4.98 10*6/uL Normal 4.6-6.2 [facility] Comment on above: Performed By: #### L 100.0100, L500.4050 #### [facility] [address] [place], [address] RDW SD 47.6 fl High 35.1-43.9 [facility] Comment on above: Performed By: #### L 100.0100, L500.4050 #### [facility] [address] [place], [address] WBC (Bld) [#/Vol] 6.2 10*3/uL Normal 4.4-11.0 [facility] Comment on above: Performed By: #### L 100.0100, L500.4050 #### [facility] [address] [place], [address] Comprehensive Metabolic Prof [facility] [place] 05-24-2024 Albumin [Mass/Vol] 3.5 g/dL Normal 3.2-5.0 [facility] Comment on above: Performed By: #### L 100.0100, L500.4050 #### [facility] [address] [place], [address] Albumin/Globulin [Mass ratio] 1.1 {ratio} Normal 0.9-2.4 [facility] Comment on above: Performed By: #### L 100.0100, L500.4050 #### [facility] [address] [place], [address] ALK P 66 U/L Normal 45-117 [facility] Comment on above: Performed By: #### L 100.0100, L500.4050 #### [facility] [address] [place], [address] ALT [Catalytic activity/Vol] 23 U/L Normal 16-61 [facility] Comment on above: Performed By: #### L 100.0100, L500.4050 #### [facility] [address] [place], [address] AST [Catalytic activity/Vol] 19 U/L Normal 15-37 [facility] Comment on above: Performed By: #### L 100.0100, L500.4050 #### [facility] [address] [place], [address] Bilirubin [Mass/Vol] 0.90 mg/dL Normal 0.20-1.00 [facility] Comment on above: Result Comment: For patients on eltrombopag therapy, use of Dimension [place] TBIL is not recommended. Performed By: #### L 100.0100, L500.4050 #### [facility] [address] [place], [address] BUN/CRE 14.1 RATIO Normal 10-20 [facility] Comment on above: Performed By: #### L 100.0100, L500.4050 #### [facility] [address] [place], [address] CA,Total 8.7 mg/dL Normal 8.5-10.1 [facility] Comment on above: Performed By: #### L 100.0100, L500.4050 #### [facility] [address] [place], [address] Chloride [Moles/Vol] 109 mmol/L High 98-107 [facility] Comment on above: Performed By: #### L 100.0100, L500.4050 #### [facility] [address] [place], [address] CO2 [Moles/Vol] 28.0 mmol/L Normal 21.0-32.0 [facility] Comment on above: Performed By: #### L 100.0100, L500.4050 #### [facility] [address] [place], [address] Creatinine [Mass/Vol] 0.85 mg/dL Normal 0.70-1.30 [facility] Comment on above: Result Comment: The validity of the calculated GFR GFRAA in patients over 70 years has not been determined. Clinical correlation is essential. Performed By: #### L 100.0100, L500.4050 #### [facility] [address] [place], [address] EST GFR - AA 111 mL/min Normal >60 [facility] Comment on above: Result Comment: Afri can Trinidadian GFR Calc Performed By: #### L 100.0100, L500.4050 #### [facility] [address] [place], [address] GAP 4 Low 5-15 [facility] Comment on above: Performed By: #### L 100.0100, L500.4050 #### [facility] [address] [place], [address] GFR/1.73 sq M.predicted among non-blacks MDRD (S/P/Bld) [Vol rate/Area] 92 mL/min/{1.73_m2} Normal >60 [facility] Comment on above: Result Comment: Non- GFR Calc Performed By: #### L 100.0100, L500.4050 #### [facility] [address] [place], [address] Globulin (S) [Mass/Vol] 3.3 g/dL Normal 2.2-4.2 [facility] Comment on above: Performed By: #### L 100.0100, L500.4050 #### [facility] [address] [place], [address] Glucose [Mass/Vol] 100 mg/dL Normal 74-106 [facility] Comment on above: Result Comment: Fast ing Glucose result from 100 to 125 mg/dL suggests IMPAIRED HOMEOSTASIS per A.D.A. criteria. Performed By: #### L 100.0100, L500.4050 #### [facility] [address] [place], [address] Potassium [Moles/Vol] 4.3 mmol/L Normal 3.5-5.1 [facility] Comment on above: Performed By: #### L 100.0100, L500.4050 #### [facility] [address] [place], [address] Sodium [Moles/Vol] 141 mmol/L Normal 136-145 [facility] Comment on above: Performed By: #### L 100.0100, L500.4050 #### [facility] [address] [place], [address] T PROT 6.8 g/dL Normal 6.4-8.2 [facility] Comment on above: Performed By: #### L 100.0100, L500.4050 #### [facility] [address] [place], [address] Urea nitrogen [Mass/Vol] 12 mg/dL Normal 7-18 [facility] Comment on above: Performed By: #### L 100.0100, L500.4050 #### [facility] [address] [place], [address] TFTESTon 10-24-2023 Free Testost Direct 5.7 pg/mL Low 6.6-18.1 [facility] ([place]) Comment on above: Result Comment: Perf ormed At: [facility] [address] [place], [place] [id number] Pancho Lee MD Ph:[phone] Performed At: [facility] [address] [place], [place] [id number] Kelsea Canada PhD Ph:[phone] Performed By: #### F ERR, FES, VIDH, LIPID, [id number], [id number] #### [facility] [address] [place], [place] [address] #### FOL, B12 #### [address] [address] Testosterone Lvl 634 ng/dL Normal 264-916 [facility] ([place] Comment on above: Result Comment: Adul t male reference interval is based on a population of healthy nonobese males (BMI <30) between 19 and 39 years old. wong Givens.al. JCEM 2017,102;6856-0067. PMID: [id number]. Performed By: #### F ERR, FES, VIDH, LIPID, [id number], [id number] #### [address] [address] #### FOL, B12 #### [address] [address] DIRECT LDLon 10-20-2023 LDL Chol Direct 160 mg/dL High 0-99 [facility] ([place] Comment on above: Result Comment: Perf ormed At: [facility] [address] [id number] Kelsea Canada PhD Ph:[phone] Performed By: #### F ERR, FES, VIDH, LIPID, [id number], [id number] #### [address] [address] #### FOL, B12 #### [place] [id number] B12on 10-19-2023 Cobalamin (Vitamin B12) [Mass/Vol] 1258 pg/mL High 211-911 [facility] ([place] Comment on above: Performed By: #### F ERR, FES, VIDH, LIPID, [id number], [id number] #### [address] [address] #### FOL, B12 #### [address] [address] Tawny 10-19-2023 Ferritin [Mass/Vol] 289.0 ng/mL Normal 26.0-388.0 [facility] ([place]) Comment on above: Performed By: #### F ERR, FES, VIDH, LIPID, [id number], [id number] #### [address] [address] #### FOL, B12 #### [place] [address] FESon 10-19-2023 Iron [Mass/Vol] 89 ug/dL Normal 65-175 [facility] ([place] Comment on above: Performed By: #### F ERR, FES, VIDH, LIPID, [id number], [id number] #### [address] [address] #### FOL, B12 #### [place] [address] Iron Sat 29 % Normal [facility] ([place] Comment on above: Performed By: #### F ERR, FES, VIDH, LIPID, [id number], [id number] #### [place] [address] #### FOL, B12 #### [place] [address] TIBC 302 mcg/dL Normal 250-450 [facility] ([place] Comment on above: Performed By: #### F ERR, FES, VIDH, LIPID, [id number], [id number] #### [place] [address] #### FOL, B12 #### [place] [address] FOLon 10-19-2023 Folate 30.71 ng/mL High 5.38-24.00 [facility] ([place] Comment on above: Performed By: #### F ERR, FES, VIDH, LIPID, [id number], [id number] #### [place] [address] #### FOL, B12 #### [place] [address] LABORATORYOrdered By: SYSTEM SYSTEM on 10-19-2023 25-hydroxyvitamin D3 [Mass/Vol] 64.7 ng/mL Invalid Interpretation Code AO ADM SS Comment on above: Interpretive Data: I nterpretive Values Based on Total 25(OH) Vitamin D: Deficient <20 ng/mL Insufficient 20 - <30 ng/mL Sufficient 30-100 ng/mL Cobalamin (Vitamin B12) [Mass/Vol] 1258 pg/mL High 211 - 911 pg/mL AH ADM SS Ferritin [Mass/Vol] 289.0 ng/mL Normal 26.0 - 3 88.0 ng/mL AO ADM SS Folate [Mass/Vol] 30.71 ng/mL High 5.38 - 24. 00 ng/mL AH ADM SS Iron [Mass/Vol] 89 ug/dL Normal 65 - 175 mcg/dL AO ADM SS Iron binding capacity [Mass/Vol] 302 mcg/dL Normal 250 - 450 mcg/dL AO ADM SS Iron Sat 29 % Invalid Interpretation Code AO ADM SS LABORATORYOrdered By: Gautam Baker on 10-19-2023 Cholesterol [Mass/Vol] 232 mg/dL High 0 - 200 mg/dL AO ADM SS Comment on above: Interpretive Data: C holesterol Reference Interval: Less than 200 Desirable 200-239 Borderline high risk 240 and above High risk Cholesterol in HDL [Mass/Vol] 56 mg/dL Normal 40 - 60 mg/dL AO ADM SS Cholesterol in LDL [Mass/Vol] 161 mg/dL High 0 - 130 mg/dL AO ADM SS Triglyceride [Mass/Vol] 73 mg/dL Normal 0 - 150 mg/dL AO ADM SS Comment on above: Interpretive Data: T riglyceride Reference Interval: Less than 150 Normal 150-199 Borderline high risk 200-499 High risk 500 or higher Very high risk LIPIDon 10-19-2023 Cholesterol [Mass/Vol] 232 mg/dL High 0-200 [facility] ([place] Comment on above: Result Comment: Chol esterol Reference Interval: Less than 200 Desirable 200-239 Borderline high risk 240 and above High risk Performed By: #### F ERR, FES, VIDH, LIPID, [id number], [id number] #### [address] [address] #### FOL, B12 #### [address] [address] Cholesterol in HDL [Mass/Vol] 56 mg/dL Normal 40-60 [facility] ([place] Comment on above: Performed By: #### F ERR, FES, VIDH, LIPID, [id number], [id number] #### [address] [address] #### FOL, B12 #### [address] [address] Cholesterol in LDL [Mass/Vol] 161 mg/dL High 0-130 [facility] ([place] Comment on above: Performed By: #### F ERR, FES, VIDH, LIPID, [id number], [id number] #### [address] [address] #### FOL, B12 #### [address] [address] Triglyceride [Mass/Vol] 73 mg/dL Normal 0-150 [facility] ([place] Comment on above: Result Comment: Trig lyceride Reference Interval: Less than 150 Normal 150-199 Borderline high risk 200-499 High risk 500 or higher Very high risk Performed By: #### F ERR, FES, VIDH, LIPID, [id number], [id number] #### [address] [address] #### FOL, B12 #### [address] [address] VIDHon 10-19-2023 Vit. D 25-Hydroxy 64.7 ng/mL Normal [facility] ([place] Comment on above: Result Comment: Inte rpretive Values Based on Total 25(OH) Vitamin D: Deficient <20 ng/mL Insufficient 20 - <30 ng/mL Sufficient 30-100 ng/mL Performed By: #### F ERR, FES, VIDH, LIPID, [id number], [id number] #### [address] [address] #### FOL, B12 #### [address] [address] .Auto Diffon 04-30-2023 Basophil, Absolute 0.1 10 3/mcL Normal 0.0-0.2 [facility] ([place]) Comment on above: Performed By: #### G FR, LIPID, CBC, ADIFF, ANEU, PSA, TSH, FT4, CMP #### [address] [address] Basophils/100 WBC (Bld) 1.0 % Normal 0.0-2.5 [facility] ([place] Comment on above: Performed By: #### G FR, LIPID, CBC, ADIFF, ANEU, PSA, TSH, FT4, CMP #### [address] [address] Eosinophil, Absolute 0.4 10 3/mcL Normal 0.0-0.4 [facility] ([place]) Comment on above: Performed By: #### G FR, LIPID, CBC, ADIFF, ANEU, PSA, TSH, FT4, CMP #### [address] [address] Eosinophils/100 WBC (Bld) 5.4 % Normal 0.0-7.0 [facility] ([place] Comment on above: Performed By: #### G FR, LIPID, CBC, ADIFF, ANEU, PSA, TSH, FT4, CMP #### [address] [address] Lymphocyte, Absolute 2.1 10 3/mcL Normal 0.8-3.9 [facility] ([place] Comment on above: Performed By: #### G FR, LIPID, CBC, ADIFF, ANEU, PSA, TSH, FT4, CMP #### [address] [address] Lymphocytes/100 WBC (Bld) 28.8 % Normal 10.0-50.0 [facility] ([place] Comment on above: Performed By: #### G FR, LIPID, CBC, ADIFF, ANEU, PSA, TSH, FT4, CMP #### [address] [address] Monocyte, Absolute 0.6 10 3/mcL Normal 0.2-1.0 [facility] ([place] Comment on above: Performed By: #### G FR, LIPID, CBC, ADIFF, ANEU, PSA, TSH, FT4, CMP #### [address] [address] Monocytes/100 WBC (Bld) 8.5 % Normal 1.7-13.0 [facility] ([place] Comment on above: Performed By: #### G FR, LIPID, CBC, ADIFF, ANEU, PSA, TSH, FT4, CMP #### [address] [address] Neutrophils/100 WBC (Bld) 56.3 % Normal 37.0-80.0 [facility] ([place] Comment on above: Performed By: #### G FR, LIPID, CBC, ADIFF, ANEU, PSA, TSH, FT4, CMP #### [address] [address] .GFRon 04-30-2023 GFR 86 ml/min/1.73sqm Normal [facility] ([place] Comment on above: Result Comment: GFR Population mean for , Non- Americans Ages 20-29 = 116 mL/min/1.73 sq.m. Ages 30-39 = 107 mL/min/1.73 sq.m. Ages 40-49 = 99 mL/min/1.73 sq.m. Ages 50-59 = 93 mL/min/1.73 sq.m. Ages 60-69 = 85 mL/min/1.73 sq.m. Ages 70+ = 75 mL/min/1.73 sq.m. Chronic Kidney Disease: Less than 60 mL/min/1.73 square meters End Stage Renal Disease: Less than 15 mL/min/1.73 square meters Performed By: #### F ERR, FES, VIDH, LIPID, [id number], [id number] #### [address] [address] #### FOL, B12 #### [address] [address] GFR Non- 71 ml/min/1.73sqm Normal [facility] ([place] Comment on above: Result Comment: GFR Population mean for , Non- Americans Ages 20-29 = 116 mL/min/1.73 sq.m. Ages 30-39 = 107 mL/min/1.73 sq.m. Ages 40-49 = 99 mL/min/1.73 sq.m. Ages 50-59 = 93 mL/min/1.73 sq.m. Ages 60-69 = 85 mL/min/1.73 sq.m. Ages 70+ = 75 mL/min/1.73 sq.m. Chronic Kidney Disease: Less than 60 mL/min/1.73 square meters End Stage Renal Disease: Less than 15 mL/min/1.73 square meters Performed By: #### F ERR, FES, VIDH, LIPID, [id number], [id number] #### [address] [address] #### FOL, B12 #### [address] [address] .NEUABSon 04-30-2023 Neutrophil, Absolute 4.2 10 3/mcL Normal 2.9-6.2 [facility] ([place] Comment on above: Performed By: #### F ERR, FES, VIDH, LIPID, [id number], [id number] #### [address] [address] #### [place], B12 #### [address] [address] CBCon 04-30-2023 Erythrocyte distribution width (RBC) [Ratio] 14.9 % High 11.5-14.5 [facility] ([place] Comment on above: Performed By: #### G FR, LIPID, CBC, ADIFF, ANEU, PSA, TSH, FT4, CMP #### [address] [address] Hematocrit (Bld) [Volume fraction] 42.1 % Normal 42.0-52.0 [facility] ([place] Comment on above: Performed By: #### G FR, LIPID, CBC, ADIFF, ANEU, PSA, TSH, FT4, CMP #### [address] [address] Hgb 14.2 G/dL Normal 14.0-18.0 [facility] ([place] Comment on above: Performed By: #### G FR, LIPID, CBC, ADIFF, ANEU, PSA, TSH, FT4, CMP #### [address] [address] MCH (RBC) [Entitic mass] 29.1 pg Normal 27.0-31.2 [facility] ([place] Comment on above: Performed By: #### G FR, LIPID, CBC, ADIFF, ANEU, PSA, TSH, FT4, CMP #### [address] [address] MCHC 33.7 G/dL Normal 31.8-35.4 [facility] ([place] Comment on above: Performed By: #### G FR, LIPID, CBC, ADIFF, ANEU, PSA, TSH, FT4, CMP #### [address] [address] MCV (RBC) [Entitic vol] 86.2 fL Normal 80.0-94.0 [facility] ([place] Comment on above: Performed By: #### G FR, LIPID, CBC, ADIFF, ANEU, PSA, TSH, FT4, CMP #### [address] [address] Platelet 151 10 3/mcL Normal 130-400 [facility] ([place] Comment on above: Performed By: #### G FR, LIPID, CBC, ADIFF, ANEU, PSA, TSH, FT4, CMP #### [address] [address] Platelet mean volume (Bld) [Entitic vol] 8.1 fL Normal 7.4-10.4 [facility] ([place] Comment on above: Performed By: #### G FR, LIPID, CBC, ADIFF, ANEU, PSA, TSH, FT4, CMP #### [address] [address] RBC 4.89 10 6/mcL Normal 4.04-6.13 [facility] ([place] Comment on above: Performed By: #### G FR, LIPID, CBC, ADIFF, ANEU, PSA, TSH, FT4, CMP #### [address] [address] WBC 7.4 10 3/mcL Normal 4.6-10.8 [facility] ([place] Comment on above: Performed By: #### G FR, LIPID, CBC, ADIFF, ANEU, PSA, TSH, FT4, CMP #### [address] [address] CMPon 04-30-2023 Albumin Level 3.7 G/dL Normal 3.4-4.8 [facility] ([place] Comment on above: Performed By: #### F ERR, FES, VIDH, LIPID, [id number], [id number] #### [address] [address] #### FOL, B12 #### [address] [address] Albumin/Globulin [Mass ratio] 1.2 {ratio} Normal 1.1-2.5 [facility] ([place] Comment on above: Performed By: #### F ERR, FES, VIDH, LIPID, [id number], [id number] #### [address] [address] #### FOL, B12 #### [address] [address] ALP [Catalytic activity/Vol] 83 U/L Normal 40-135 [facility] ([place] Comment on above: Performed By: #### F ERR, FES, VIDH, LIPID, [id number], [id number] #### [address] [address] #### FOL, B12 #### [address] [address] ALT [Catalytic activity/Vol] 17 U/L Normal 16-63 [facility] ([place] Comment on above: Performed By: #### F ERR, FES, VIDH, LIPID, [id number], [id number] #### [address] [address] #### FOL, B12 #### [address] [address] AST [Catalytic activity/Vol] 15 U/L Normal 10-40 [facility] ([place] Comment on above: Performed By: #### F ERR, FES, VIDH, LIPID, [id number], [id number] #### [address] [address] #### FOL, B12 #### [address] [address] Bili Total 0.8 mg/dL Normal 0.2-1.0 [facility] ([place] Comment on above: Result Comment: Use of this assay is not recommended for patients undergoing treatment with eltrombopag due to the potential for falsely elevated results. Performed By: #### F ERR, FES, VIDH, LIPID, [id number], [id number] #### [address] [address] #### FOL, B12 #### [address] [address] BUN/Creatinine Ratio 13 ratio Normal 7-27 [facility] ([place]) Comment on above: Performed By: #### F ERR, FES, VIDH, LIPID, [id number], [id number] #### [place] [address] #### FOL, B12 #### [address] [address] Calcium [Mass/Vol] 8.8 mg/dL Normal 8.4-10.2 [facility] ([place]) Comment on above: Performed By: #### F ERR, FES, VIDH, LIPID, [id number], [id number] #### [place] [address] #### FOL, B12 #### [address] [address] Chloride [Moles/Vol] 108 mmol/L High 98-107 [facility] ([place] Comment on above: Performed By: #### F ERR, FES, VIDH, LIPID, [id number], [id number] #### [place] [address] #### FOL, B12 #### [address] [address] CO2 [Moles/Vol] 27 mmol/L Normal 23-31 [facility] ([place] Comment on above: Performed By: #### F ERR, FES, VIDH, LIPID, [id number], [id number] #### [place] [address] #### FOL, B12 #### [address] [address] Creatinine [Mass/Vol] 1.01 mg/dL Normal 0.70-1.30 [facility] ([place]) Comment on above: Performed By: #### F ERR, FES, VIDH, LIPID, [id number], [id number] #### [address] [address] #### FOL, B12 #### [address] [address] Electrolyte Balance 7.0 mEq/L Normal 4.0-15.0 [facility] ([place]) Comment on above: Performed By: #### F ERR, FES, VIDH, LIPID, [id number], [id number] #### [address] [address] #### FOL, B12 #### [address] [address] Globulin 3.0 G/dL Normal [facility] ([place] Comment on above: Performed By: #### F ERR, FES, VIDH, LIPID, [id number], [id number] #### [place] [address] #### FOL, B12 #### [address] [address] Glucose [Mass/Vol] 99 mg/dL Normal 83-110 [facility] ([place] Comment on above: Performed By: #### F ERR, FES, VIDH, LIPID, [id number], [id number] #### [address] [address] #### FOL, B12 #### [address] [address] Potassium [Moles/Vol] 4.6 mmol/L Normal 3.5-5.1 [facility] ([place] Comment on above: Performed By: #### F ERR, FES, VIDH, LIPID, [id number], [id number] #### [address] [address] #### FOL, B12 #### [address] [address] Sodium [Moles/Vol] 142 mmol/L Normal 136-145 [facility] ([place] Comment on above: Performed By: #### F ERR, FES, VIDH, LIPID, [id number], [id number] #### [place] [address] #### FOL, B12 #### [address] [address] Total Protein 6.7 G/dL Normal 6.4-8.2 [facility] ([place] Comment on above: Performed By: #### F ERR, FES, VIDH, LIPID, [id number], [id number] #### [place] [address] #### FOL, B12 #### [place] [id number] Urea nitrogen [Mass/Vol] 13 mg/dL Normal 7-18 [facility] ([place] Comment on above: Performed By: #### F ERR, FES, VIDH, LIPID, [id number], [id number] #### [place] [address] #### FOL, B12 #### [address] [address] FT4on 04-30-2023 Free T4 [Mass/Vol] 1.00 ng/dL Normal 0.76-1.46 [facility] ([place] Comment on above: Performed By: #### F ERR, FES, VIDH, LIPID, [id number], [id number] #### [place] [address] #### FOL, B12 #### [address] [address] LIPIDon 04-30-2023 Cholesterol [Mass/Vol] 256 mg/dL High 0-200 [facility] ([place] Comment on above: Result Comment: Chol esterol Reference Interval: Less than 200 Desirable 200-239 Borderline high risk 240 and above High risk Performed By: #### F ERR, FES, VIDH, LIPID, [id number], [id number] #### [place] [address] #### FOL, B12 #### [address] [address] Cholesterol in HDL [Mass/Vol] 59 mg/dL Normal 40-60 [facility] ([place] Comment on above: Performed By: #### F ERR, FES, VIDH, LIPID, [id number], [id number] #### [address] [address] #### FOL, B12 #### [address] [address] Cholesterol in LDL [Mass/Vol] 185 mg/dL High 0-130 [facility] ([place] Comment on above: Performed By: #### F ERR, FES, VIDH, LIPID, [id number], [id number] #### [address] [address] #### FOL, B12 #### [address] [address] Triglyceride [Mass/Vol] 58 mg/dL Normal 0-150 [facility] ([place] Comment on above: Result Comment: Trig lyceride Reference Interval: Less than 150 Normal 150-199 Borderline high risk 200-499 High risk 500 or higher Very high risk Performed By: #### F ERR, FES, VIDH, LIPID, [id number], [id number] #### [address] [address] #### FOL, B12 #### [place] [address] PSAon 04-30-2023 Prostate Specific Antigen 2.24 ng/mL Normal 0.00-4.00 [facility] ([place] Comment on above: Performed By: #### F ERR, FES, VIDH, LIPID, [id number], [id number] #### [address] [address] #### FOL, B12 #### [place] [id number] TSHon 04-30-2023 TSH Qn 1.37 m[IU]/L Normal 0.36-3.74 [facility] ([place] Comment on above: Performed By: #### F ERR, FES, VIDH, LIPID, [id number], [id number] #### [facility] [address] [place], [place] [address] #### FOL, B12 #### [facility] [address] [place] [address] Encounters Encounter Date Encounter Type Care Provider Facility Start: 05-22-2025 ambulatory Nicole Flynn CHECKOUT SUPERVISOR Faci lity:[facility] Start: 05-10-2025 Encounter for other preprocedural examination Omi Patel [facility] Start: 05-02-2025 End: 05-02-2025 ambulatory NICOLE FLYNN Facility:[facility] Start: 04-04-2025 End: 04-04-2025 ambulatory NICOLE FLYNN Facility:[facility] Start: 04-03-2025 End: 04-03-2025 ambulatory NICOLE FLYNN Facility:[facility] Start: 04-03-2025 Patient encounter procedure NICOLE FLYNN [facility] Start: 06-01-2024 End: 06-01-2024 ambulatory Jeyson CANO Facility:[facility] Start: 06-01-2024 End: 06-01-2024 ambulatory Jeyson CANO Facility:[facility] Start: 05-24-2024 End: 05-24-2024 ambulatory Jeyson CANO Facility:[facility] Start: 10-19-2023 End: 10-20-2023 ambulatory HARRY HILL DO Facility:[facility] Start: 10-19-2023 End: 10-19-2023 Patient encounter procedure HARRY IHLL DO [facility] Start: 04-30-2023 End: 05-01-2023 ambulatory GEOFF PUENTES SLOTTER OPERATOR-PCB DESIGN ENGINEER Facility:[facility] Start: 05-13-2021 End: 05-13-2021 Patient encounter procedure ALDAIR LYNNE MD [facility] Procedures Date Procedure Procedure Detail Performing Clinician Start: 06-29-1985 Hyphema of left eye (disorder) ALDAIR LYNNE MD Start: 06-29-1976 Hernia of abdominal cavity (disorder) ALDAIR LYNNE MD Comment on above: periumbilical, [facility] Start: 06-29-1971 H/O: vasectomy ALDAIR SO MD Immunizations Immunization Date Immunization Notes Care Provider [facility] 11-16-2020 zoster vaccine recombinant ALDAIR LYNNE MD [facility] 09-10-2020 zoster vaccine recombinant ALDAIR LYNNE MD [facility] 09-17-2011 tetanus toxoid, redu mariah diphtheria toxoid, and acellular pertussis vaccine, adsorbed ALDAIR LYNNE MD [facility] Payers Date Payer Category Payer Self-pay 2022 Private Health Insurance [id number] 1945 Unknown [id number] 1945 Unknown [id number] [id number] [id number] Unknown [id number] 2.16.8 [id number] Unknown [id number] 2.16.8 [id number] Unknown [id number] 2.16.8 [id number] Unknown [id number] [id number] [id number] Social History Date Type Detail Facility Start: 08-05-2019 Never smoked t obacco (finding) [facility] Sex Assigned At Male [facility] Progress note 05-02-2025 Note Date & Type Note Facility 05-02-2025 Note HNO ID: [id number] Author: NICOLE FLYNN APRN.PCB DESIGN ENGINEER Service: ? Author Type: Nurse Practitioner Type: Progress Notes Filed: 05/02/2025 13:47 Note Text: 1CC: Patient presents with: Pre-Op Exam: Right hip-[facility] HPI Chayo Hale is a 80 year old male who presents today for pre-op evaluation. Surgical Procedure: anterior right total hip arthroplasty Date of Procedure: 05/22/25 Surgeon: Omi Patel MD PAT date: 04/25, 05/12 Diabetes No Hypertension requiring medication No Congestive Heart Failure No Current Smoker within 1 Year No COPD/asthma No RIVAS No Dialysis No Acute renal failure No Steroid use for chronic condition No Disseminated cancer No Review of Systems Constitutional: Negative for appetite change, chills, diaphoresis, fatigue and unexpected weight change. Respiratory: Negative for cough, chest tightness, shortness of breath and wheezing. Cardiovascular: Negative for chest pain, palpitations and leg swelling. Neurological: Negative for dizziness, syncope, weakness, light-headedness and headaches. History reviewed. No pertinent past medical history. PAST SURGICAL HISTORY Procedure Laterality Date REPAIR UMBILICAL HERNIA 1974 ALLERGIES Penicillins and Sulfa (Sulfonamide Antibiotics) MEDICATIONS ergocalciferol, vitamin D2, (VITAMIN D2 PO) Take 5,000 Units by mouth once daily. FISH OIL-DHA-EPA PO Take 2,000 mg by mouth once daily. COQ10, UBIQUINOL, PO Take 200 mg by mouth once daily. COLLAGEN MISC 1,000 mg once daily. SELENIUM PO Take 200 mg by mouth once daily. KELP PO Take 150 mcg by mouth once daily. Mccarthy Aspartate 5 mg cap Take 5 mg by mouth once daily. BORON ORAL Take 3 mg by mouth once daily. magnesium oxide (MAG-CAPS ORAL) Take 400 mg by mouth once daily. TURMERIC PO Take 500 mg by mouth once daily. ZINC ACETATE PO Take 50 mg by mouth once daily. VITAMIN E-400 ORAL Take 400 mg by mouth once daily. vanadyl sulfate (VANADYL ORAL) Take 10 mg by mouth once daily. CHROMIUM ORAL Take 200 mg by mouth once daily. albuterol HFA (PROVENTIL HFA) 90 mcg/actuation inhaler Inhale 2 puffs as instructed every 4 hours as needed for wheezing/shortness of breath. FAMILY HISTORY Problem Relation Age of Onset Arthritis Mother SOCIAL HISTORY[1] BP 122/74 Pulse 86 Temp 36.6 ?C (97.9 ?F) (Temporal) Resp 14 Wt 80.2 kg (176 lb 12.9 oz) SpO2 99% BMI 26.95 kg/m? Physical Exam Vitals reviewed. Constitutional: Appearance: Normal appearance. HENT: Head: Normocephalic and atraumatic. Mouth/Throat: Mouth: Mucous membranes are moist. Pharynx: Oropharynx is clear. Eyes: Conjunctiva/sclera: Conjunctivae normal. Cardiovascular: Rate and Rhythm: Normal rate and regular rhythm. Pulses: Normal pulses. Heart sounds: Normal heart sounds. No murmur heard. Pulmonary: Effort: Pulmonary effort is normal. Breath sounds: Normal breath sounds. No wheezing, rhonchi or rales. Abdominal: Palpations: Abdomen is soft. Tenderness: There is no abdominal tenderness. Lymphadenopathy: Cervical: No cervical adenopathy. Skin: General: Skin is warm and dry. Neurological: Mental Status: He is alert. Psychiatric: Mood and Affect: Mood normal. Diagnoses/Plan 1. Pre-operative evaluation Reviewed PAT results including EKG, CBC and BMP; results all normal There is no known pertinent medical condition which may affect jaki-operative course SOLIS risk: Patient is scheduled for a intermediate-risk procedure. Risk of 0.1% calculated using the NSQIP surgical risk calculator ASA class: ASA 1- Normal healthy patient Functional status: Independent The patient is medically optimized for surgery Nicole Flynn APRN.PCB DESIGN ENGINEER [1] Social History Tobacco Use Smoking status: Never Smokeless tobacco: Never Vaping Use Vaping status: Never Used Substance Use Topics Alcohol use: Never Drug use: Never [facility] Progress note 04-03-2025 Note Date & Type Note Facility 04-03-2025 Note HNO ID: [id number] Author: NICOLE FLYNN APRN.PCB DESIGN ENGINEER Service: ? Author Type: Nurse Practitioner Type: Progress Notes Filed: 04/03/2025 10:37 Note Text: Chayo Hale is a 80 year old male here for a Medicare wellness visit. Medicare Health Risk Assessment General Health Excellent Exercise: Minutes/Day 40 min Exercise: Days/Week 7 days Alcohol: Daily Use Monthly or less Alcohol: Drinks/Day 1 or 2 Alcohol: 6 or more drinks Never Feel off balance No Concerns: Teeth/Dentures No Concerns: Sexual function No Troubled by feelings None of the above Frequency: Eating healthy diet Nearly every day ADLs requiring help None of the above Safety precautions in home/vehicle Yes Smoke, vape, chews tobacco No Difficulty hearing Yes Difficulty seeing No Current Providers Specialists: I have reviewed specialist-related care of the patient in the medical record. Current care team: Patient Care Team: Gregorio Haywood MD as PCP - General (Internal Medicine) [facility] Medical/Family history review Reviewed and updated problem list, medical/surgical/family/social history, medications, and allergies. Opioid use review Opioid Medications (last 90 days) No data to display Anxiety/Depression screening PHQ-2 Score: 0 (Lower risk for depression) TREMAINE-2 Score: 0 (Lower risk for anxiety) Recommendation: no further intervention at this time Cognitive screening Cognitive screening reviewed and Patient declined Mini-Cog test. Functional Observation Was the patient's Timed Up AND Go test unsteady or >= 12 seconds? No Advance Care Planning Patient was not able to provide a surrogate decision maker or written advance directives Measurements BP 132/80 Pulse 76 Resp 14 Ht 172.5 cm (5' 7.91) Wt 79.7 kg (175 lb 11.3 oz) SpO2 97% BMI 26.78 kg/m? Vision Screening: Follows with optometry/ophthalmology Assessment/Plan Medicare annual wellness visit, subsequent (Z00.00) - Counseled on healthy diet and regular exercise - Fall avoidance information provided - Personalized prevention plan provided 2. Arthritis of right hip: Patient reports right hip pain from ?bone on bone? changes and has an appointment on the with [facility] for possible surgical intervention. 3. Encounter for screening examination for other mental health and behavioral disorders: TREMAINE=0 4. Screening for depression: PHQ=0 5. Encounter for lipid screening for cardiovascular disease: Fasting lipid panel ordered 6. Encounter for screening for diabetes mellitus: Fasting blood work ordered Prescription instructions reviewed with patient as applicable. Potential red flag symptoms discussed with the patient. Reviewed appropriate action plan to take if red flag symptoms occur. Patient agreeable to treatment plan. Nicole Flynn APRN.[facility] Evaluation + Plan note Note Date & Type Note Facility Evaluation + Plan note Future Appointments Appointment Date:05/16/2021 08:30:00 AM Scheduled Provider:ALDAIR LYNNE MD [place] [place] Appointment Type:PC OV [facility] Evaluation + Plan note Note Date & Type Note Facility Evaluation + Plan note Future Appointments Appointment Date:11/13/2023 10:00:00 AM Scheduled Provider:HARRY HILL DO Location:[facility] [place] Appointment Type:PC Wellness Medicare Diagnostic Tests PendingTestosterone,Free and Total 10/19/23LDL Cholesterol (Direct) 10/19/23 [facility] Hospital course Narrative Note Date & Type Note Facility Hospital course Narrative No data available for this section [facility] Hospital Discharge instructions Note Date & Type Note Facility Hospital Discharge instructions No data available for this section [facility] Progress note Note Date & Type Note Facility Progress note No data available for this section [facility] Summary Purpose Family History No Family History Records Found Advance Directives No Advanced Directives Records FoundNo Advanced Directives Records FoundNo Advanced Directives Records Found Additional Source Comments Patient Care team informatio n (unrecognized section and content) Care Team Personnel Name: HARRY HILL DO Position: P4 Physician - Primary Care Member Role: Primary Care Physician Address: Address: [address] [facility] [address] Care Team Related Persons Name: LAN HALE (unrecognized sect ion and content) No Status Records FoundNo Status Records FoundNo Status Records Found INFORMATION SOURCE (unrecogn ized section and content) DATE CREATED AUTHOR 10/31/2023 [facility] ([place]) DATE CREATED AUTHOR AUTHOR'S ORGANIZ ATION 05/04/2025 [facility] DATE CREATED AUTHOR AUTHOR'S ORGANIZ ATION 05/11/2025 [facility] FOR RECORDS PERTAINING TO PATIENTS WHO ARE OR HAVE BEEN ENROLLED IN A CHEMICAL DEPENDENCY/SUBSTANCEABUSE PROGRAM, SOME INFORMATION MAY BE OMITTED. This clinical summary was aggregated from multiple sources. Caution should be exercised in using it in the provision of clinical care. This summary normalizes information from multiple sources, and as a consequence, information in this document may materially change the coding, format and clinical context of patient data. In addition, data may be omitted in some cases. CLINICAL DECISIONS SHOULD BE BASED ON THE PRIMARY CLINICAL RECORDS. [facility] provides no warranty or guarantee of the accuracy or completeness of information in this document.
[2025-05-22] MEDS: Lactated Ringers 1,000 ML 75 ML IV (06:22)
[2025-05-22] MEDS: LR 1,000 ML - BOLUS PREOP 999 ML IV (06:23)
--- NOTE | 2025-05-22 06:42 | PCM.PRE.AN2 ---
ASA Classification* ASA Classification ASA Classification: 3 (GERD. tremor, asthma/COPD. Surgical clearance from PCP Gee. Physically active) Assessment & Plan Anesthesia* Anesthesia Assessment Anesthesia Assessment: Discussed sedation and/or anesthesia options, risks, benefits, and alternatives with patient/parents/legal guardian/POA. Questions invited. The patient/parents/legal guardian/POA seems to understand and agrees to proceed with anesthesia plan. Reviewed the physical assessment, medical history, allergy history and patient home medications list prior to surgery/procedure/anesthetic and documented any changes. Performed airway and anesthesia risk assessments. Anesthesia Type Anesthesia Type: Spinal History Source History Obtained from:: Patient and Chart Anesthesia Focused Assessment* Temperature: 97.1 F Pulse Rate: 79 Blood Pressure: 132/84 Respiratory Rate: 16 Pulse Ox: 97 Oxygen Delivery Method: Room Air Airway Assessment Mouth opens: >3 cm Mallampati Score: II Neck Range of motion (ROM): Full ROM Labs Anesthesia Preop lab: CBC WBC, (4.4-11.0) 7.1 K/mm3 04/27/25, 08:45 RBC, (4.6-6.2) 4.92 M/mm3 04/27/25, 08:45 Hgb, (13.0-16.5) 14.4 g/dL 04/27/25, 08:45 Hct, (40-54) 42.7 % 04/27/25, 08:45 Plt Count, (150-450) 165 K/mm3 04/27/25, 08:45 CHEMISTRY Potassium, (3.3-5.1) 4.2 mmol/L 04/27/25, 08:45 Sodium, (133-145) 141 mmol/L 04/27/25, 08:45 Magnesium, (1.5-2.2) 2.3 mg/dL H 04/27/25, 08:45 BUN, (4-19) 12 mg/dL 04/27/25, 08:45 Creatinine, (0.70-1.20) 0.82 mg/dL 04/27/25, 08:45 Glucose, (70-99) 101 mg/dL H 04/27/25, 08:45 COAG Pre-Assessment Diagnosis/Proposed Procedure Planned Operative Procedure(s): ANTERIOR RIGHT TOTAL HIP ARTHROPLASTY Anesthesia History 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 When Was Last Pacemaker Check QUESTION #4 FULL TEXT: You/Your Family Experience fever (hyperthermia) with Anesthesia Last Oral Intake Last Oral intake: Last Oral Intake NPO since 03:30 05/22/25 06:11 Meds taken in AM with sips of Yes 05/22/25 06:11 water? Meds patient instructed to take am of surgery PONV PONV - garbage stoker: PONV - garbage stoker Female No 04/25/25 11:20 HX of Motion Sickness No 04/25/25 11:20 HX of N/V After Surgery No 04/25/25 11:20 Non-Smoker Yes 04/25/25 11:20 Duration of Surgery greater Yes 04/25/25 11:20 than 60 minutes Number of Risk Factors 2 04/25/25 11:20 PONV Score Moderate Risk 04/25/25 11:20 Height & Weight Height & Weight: Anesthesia: Height & Weight Height 5 ft 8 in 05/22/25 06:11 Weight: 77.474 kg 05/22/25 06:11 Body Mass Index (BMI) 25.9 05/22/25 06:11 Respiratory Assessment Respiratory Assessment - garbage stoker: Respiratory Tract Infection Hx - garbage stoker Hx Respiratory Tract Infection No 04/25/25 11:20 STOP Sleep Apnea STOP Sleep Apnea - garbage stoker: STOP Sleep Apnea - garbage stoker Hx Hypertension No 04/25/25 11:20 Hx Sleep Apnea No 04/25/25 11:20 CPAP BIPAP Do you snore loudly (louder Yes 04/25/25 11:20 than talking or can be heard Do you often feel tired/ No 04/25/25 11:20 fatigued/ sleepy during daytime? Has anyone observed you stop No 04/25/25 11:20 breathing during sleep? STOP Results Negative 04/25/25 11:20 QUESTION #5 FULL TEXT : Do you snore loudly (louder than talking or can be heard through closed doors)? 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 Specify any problems Hx of Preganancy in last 3 N/A 04/25/25 11:20 Months Nurse Filling Out Transfusion DSCHRIBER 04/25/25 11:20 & Questions: Date: 04/25/25 04/25/25 11:20 Time: 11:26 04/25/25 11:20 Patient unable to answer at this time (ie. confused, unrespo /Reproduction History /Reproductive History - garbage stoker: /Reproductive Hx- garbage stoker Hx Now No 04/25/25 11:20 Gestational Age (in weeks): EDC: Hx Hx Para Hx Section SAB No 04/25/25 11:20 Does the father of the baby or his family experience fever w Father of the baby Malignant Hypertension history comment Active Medications Active Medications: Current Medications Generic Name Dose Route Start Last Admin Trade Name Freq PRN Reason Stop Dose Admin Acetaminophen 1,000 mg 05/22/25 07:30 05/22/25 06:16 Acetaminophen 500 Mg Tablet PO 05/22/25 07:31 1,000 mg PREOP ONE Administration Sodium Chloride 77.9 ml/ 0 ml 05/22/25 07:30 Ropivacaine 200 mg/ OPERA.SITE 05/22/25 07:31 Epinephrine HCl 0.6 mg/ INTRAOP ONE Ketorolac Tromethamine 30 mg/ Morphine Sulfate 5 mg Dexamethasone Sodium Phosphate 10 mg 05/22/25 07:30 Dexamethasone 10 Mg/Ml Vial IV 05/22/25 07:31 INTRAOP ONE Gabapentin 600 mg 05/22/25 07:30 05/22/25 06:16 Gabapentin 600 Mg Tablet PO 05/22/25 07:31 600 mg PREOP ONE Administration Lactated Ringer's 1,000 mls @ 999 mls/hr 05/22/25 07:30 05/22/25 06:23 IV 05/22/25 08:30 999 mls/hr .Q1H1M RADHA Administration Cefazolin Sodium 2 gm/ Sodium 110 mls @ 150 mls/hr 05/22/25 07:30 Chloride IV 05/22/25 08:13 INTRAOP ONE Tranexamic Acid 1,000 mg/ 110 mls @ 660 mls/hr 05/22/25 07:30 Sodium Chloride IV 05/22/25 07:39 INTRAOP ONE Tranexamic Acid 1,000 mg/ 110 mls @ 660 mls/hr 05/22/25 07:30 Sodium Chloride IV 05/22/25 07:39 INTRAOP ONE Lactated Ringer's 1,000 mls @ 999 mls/hr 05/22/25 08:30 IV 05/22/25 09:30 .Q1H1M RADHA Lactated Ringer's 1,000 mls @ 125 mls/hr 05/22/25 09:30 IV 05/22/25 17:29 .Q8H RADHA Lactated Ringer's 1,000 mls @ 75 mls/hr 05/22/25 05:45 05/22/25 06:22 IV 75 mls/hr .[id number] RADHA Administration Insulin Human Lispro 1 - 6 unit 05/22/25 07:30 Insulin Lispro 100 Unit/Ml Insuln.Pen SC 05/22/25 13:30 Q4H PRN PRN BG>/= 180, SEE PROTOCOL Protocol Meloxicam 15 mg 05/22/25 07:30 05/22/25 06:16 Meloxicam 15 Mg Tablet PO 05/22/25 07:31 15 mg PREOP ONE Administration PFSH Medical History (Updated 04/25/25 @ 11:56 by Zully Sutherland) Benign essential tremor Loss of hearing Wears glasses Wears dentures Depression Anxiety Prostate disease Arthritis High cholesterol Restless legs Headache Heartburn History of COVID-19 Non-smoker Leg cramps History of pain when walking Cardiology follow-up encounter History of stress test Home Medications ?Medication ?Instructions ?Recorded ?Last Taken ?Type albuterol sulfate 90 mcg/actuation 1 inh inhalation Q4H PRN shortness 12/15/23 05/22/25 03:30 History aerosol inhaler of breath or wheezing cholecalciferol (vitamin D3) 25 5,000 unit PO DAILY 12/15/23 05/22/25 03:30 History mcg (1,000 unit) capsule collagen,hydrolysate 500 mg-biotin 1 cap PO DAILY 12/15/23 05/17/25 History 800 mcg-ascorbic acid 50 mg capsule (Collagen 1500 Plus C) omega 2-vhe-qbj-fish oil 60 mg-90 1 cap PO DAILY 12/15/23 05/17/25 History mg-500 mg capsule (Fish Oil) selenium 200 mcg capsule 200 mcg PO DAILY 12/15/23 05/17/25 History turmeric 500 mg PO DAILY 12/15/23 05/17/25 History vitamin E mixed 400 unit capsule 400 unit PO DAILY 12/15/23 05/17/25 History boron citrate 3 mg tablet 3 mg PO DAILY 04/25/25 05/17/25 History chromium 200 mcg tablet 200 mcg PO DAILY 04/25/25 05/17/25 History coenzyme Q10 200 mg capsule (Co 200 mg PO DAILY 04/25/25 05/17/25 History Q-10) iodine (kelp) 0.15 mg tablet (Kelp) 150 mcg PO DAILY 04/25/25 05/17/25 History lithium aspartate 5 mg capsule 5 mg PO DAILY 04/25/25 05/17/25 History magnesium 200 mg tablet 400 mg PO DAILY 04/25/25 05/17/25 History vanadyl 10 mg tablet 10 mg PO DAILY 04/25/25 05/17/25 History zinc gluconate 50 mg tablet 50 mg PO DAILY 04/25/25 05/17/25 History Allergy/AdvReac Type Severity Reaction Status Date / Time codeine Allergy Mild hives Verified 05/22/25 05:57 Penicillins Allergy Mild hives Verified 05/22/25 05:57 Sulfa (Sulfonamide Allergy Mild hives Verified 05/22/25 05:57 Antibiotics) (sulfa drugs) Family History Brother Cancer skin, prostate,bone Surgical History (Updated 04/25/25 @ 11:40 by uZlly Sutherland) Hx of colonoscopy Hx of cataract surgery H/O eye surgery H/O hernia repair Social History household members: spouse housing: house current occupational status: retired Smoking Status: Never smoker alcohol intake: never substance use type: does not use what type of physical activity do you participate in: walking 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 Physical Exam Const alert, oriented x3 and average body habitus Resp normal respiratory effort, normal air movement and clear to auscultation bilaterally Cardio regular rate, regular rhythm and no murmurs; Negative for diaphoretic
[2025-05-22] MEDS: Midazolam 2 MG/2 ML Syringe IV (07:20)
[2025-05-22] MEDS: Cefazolin 1 GM/5 ML Vial IV (07:30)
[2025-05-22] MEDS: JPS (Morphine 10mg/ml) OPERA.SITE (07:30)
[2025-05-22] MEDS: Lidocaine 1% (5 ml sdv) 5 ML Vial IV (07:38)
[2025-05-22] MEDS: Lactated Ringers 2,000 ML 2000 ML IV (08:00)
--- NOTE | 2025-05-22 08:10 | RAD_ITS ---
PROCEDURE: HIP MIN 2 VIEWS (PORTABLE) 05/22/2025 REASON FOR EXAM: ANTERIOR TOTAL RT HIP ARTHROPLASTY TECHNIQUE: Procedure Code: RADH_P Modality: DX Procedure: HIP MIN 2 VIEWS (PORTABLE) Fluoroscopy time: 9.6 seconds Total images: 4 COMPARISON: None FINDINGS: Fluoroscopic spot images were obtained overlying the right hip. Initial image over the midline shows no fracture. Acetabular component of a right hip prosthesis is present along with a partially imaged breast. Subsequent image shows placement of the rasp followed by the prosthesis. Alignment in this single plane is anatomic. RAD/Hip Min 2 Views (Portable) IMPRESSION: Anatomic alignment following right hip replacement. Correlate with procedural note. Reading Location: [facility]
--- NOTE | 2025-05-22 08:28 | PCM.OPRPT ---
Operative Report (Standard) Operative Information Date of Procedure: 05/22/25 Pre-Operative Diagnosis: Right hip primary osteoarthritis Post-Operative Diagnosis: Right hip primary osteoarthritis Surgery/Procedure Performed: Right minimally invasive direct anterior total replacement shirt ironer: Yes Matching Machine Operator: Andie Covarrubias Tasks completed by library serials assistant: Other (See body of operative report) Additional laboratory assistant?: No Type of Anesthesia: Spinal RN Documented Start/Stop Times: Operation Date: 05/22/25 07:30 Case Time Into Pre-Op 05/22/25 05:36 Anesthesia Start 05/22/25 07:28 Into Room 05/22/25 07:28 Procedure Start 05/22/25 07:49 Procedure End 05/22/25 09:08 Anesthesia End 05/22/25 09:12 Out of Room 05/22/25 09:12 Into Recovery 05/22/25 09:16 Procedure Start Time: 07:49 Procedure Stop Time: 09:08 Select all DRAINS/GRAFTS/IMPLANTS that apply: Prosthetic device Prosthetic device details: See body of operative report Special Medications: 2 g Ancef, 1 g TXA at incision, 1 g TXA closure, 10 mg Decadron, joint cocktail (5 mg Duramorph, 30 mL of 0.5% Ropivicaine, 1000 units of epinephrine, 30 mg of Toradol) Estimated Blood Loss: 300 mL Fluids Replaced: 2000 mL crystalloid Specimen collected: Yes Description of specimen(s) removed: Bony cuts Description of surgery: Components used: 1. Insignia [place] femoral stem size 7 standard 2. [place] trident 2 acetabular shell size 58 mm 3. Bib[place] X3 polyethylene F 4. Bibiana Biolox delta 36mm, -2.5mm femoral head Brief history operative indications: 80 yo M who failed conservative measures for their hip osteoarthritis. X-rays were consistent with osteoarthritis including joint space narrowing, osteophyte formation and subchondral cysts. Total hip replacement was discussed with the patient with risks and benefits including but not limited to blood loss, DVTs, PEs, neurovascular damage, dislocation, general risks of anesthesia including loss of life. Patient demonstrated an understanding medical clearance is obtained the patient was consented for surgery. Procedure: On the date of procedure the patient's R hip was marked in the preoperative area. Patient was then taken back to the operating room where anesthesia assumed control of the C-spine and airway and administered anesthetic. Patient was transferred to the operating table and placed in the supine position. The hips were placed at the break of the bed and a sacral bump was placed. The R lower extremity was then prepped out in a sterile fashion using chlorhexidine while the surgeon scrubbed. The PA was vital in the positioning of the patient. Upon reentering the room the R lower extremity was draped in the standard orthopedic fashion and the incision was marked. A timeout was called and everyone agreed upon the side, the site, the procedure be performed, antibody given, and patient's identity. At this time incision was made through skin, subcutaneous tissue, and fat down to fascia. The fascia was then incised and the TFL was retracted laterally. A retractor was placed on the lateral border of the femoral neck. Attention was directed to the inferior portion of the approach and all crossing vessels were identified and appropriately coagulated. A retractor was then placed on the medial portion of the femoral neck. The anterior capsule was then cleared of all soft tissue and then H shaped capsulotomy was made. The retractors were then placed inside the capsule. The femoral neck was identified and a cleanup cut was made. At this time a power corkscrew was used to remove the femoral head. Attention was then turned toward the acetabulum where the soft tissues were appropriately retracted and the acetabulum was sequentially reamed to 58 mm. A 58 mm cup was then selected and impacted into place. Acetabular liner was impacted into place and locking mechanism was verified. The position of the acetabular cup was then verified under live fluoroscopy. Attention was then turned to the femur. Soft tissue releases on the medial and lateral femoral neck were appropriately done, the leg was externally rotated and lateralized. A Rowland retractor was placed medially and proximally to the greater trochanter this allowed appropriate visualization and exposure of the femoral canal. Rongeour was then used to remove excess lateral bone. A canal finder and entry broach were used to open the proximal canal. Once we verified we were down the femoral canal we subsequently broached up to a size 7 femur. The appropriate neck was placed in the previously selected head was trialed with a -2.5 mm neck. Traction was pulled and the hip was reduced with internal rotation. Once it was appropriately reduced and stability was checked. There was minimal shuck, equal leg lengths and appropriate stability with hyperextension and external rotation as well as with 90? flexion and internal rotation. Fluoroscopy was then also used to verify the position of the components and leg lengths using the contralateral side for comparison. The trial components were then dislocated the proximal femur was again exposed and the components were removed from the wound. The final components were verified and opened. The wound was copiously irrigated out with normal saline. The acetabulum was checked for any residual debris. The final components were placed and impacted. Traction and internal rotation were again used to reduce the hip. After adequate reduction the hip remained stable with appropriate leg lengths. The final components were once again checked with live fluoroscopy and were found to be satisfactory. The wound was then copiously irrigated with normal saline once more, and hemostasis was obtained. Closure was then done using #1 Vicryl runner to close the fascia. A 2-0 vicryl interuppted sutures were used to close the subcutaneous skin. A 3-0 Monocryl and Steri-Strips were used for final skin closure. A Silverlon dressing was placed. Patient was awakened by anesthesia and transferred to the rfort pierce. Patient was then transferred to the PACU for recovery. Postoperative plan: Patient will get 24 hours postop antibiotics. Patient will get in-house physical therapy and will be weight-bear as tolerated. Patient will follow up in office in 2 weeks for a wound check and x-rays. Aspirin 81 mg twice daily. During the course of the procedure the physician senior hr manager (PE) played a vital role. Their intimate knowledge of my steps in the procedure aided in safe and expedient completion of the procedure. The PE played a vital rolls in positioning particularly in obtaining the appropriate positioning of the sacral bump. The PE was also vital in the retraction of soft tissues during the exposure and especially the femoral work as this is a vital part of the procedure to prevent complications and fractures. The PE was also vital and protecting soft tissues during times of bony cuts and reaming. He also played a vital role in closure with my direct supervision. The PE was also important during reduction and dislocation of the joint and trials intraoperatively. Surgical Findings: Stable hip with equal leg lengths Complications Complications: No Admit VTE Documentation VTE Present on Admission: Yes VTE Mechan Device Prophylaxis: SCD's and Thigh High JEN Hose VTE Pharm Prophylaxis ordered?: Yes
[2025-05-22] MEDS: TRANEXAMIC ACID 1,000 MG/10 ML ML 2000 MG IV (08:30)
--- NOTE | 2025-05-22 09:20 | RAD_ITS ---
PROCEDURE: HIP MIN 2 VIEWS (PORTABLE) 05/22/2025 REASON FOR EXAM: POST OP TECHNIQUE: Procedure Code: RADH_P Modality: DX Procedure: HIP MIN 2 VIEWS (PORTABLE) Laterality: Right hip. COMPARISON: None FINDINGS: The patient is status post right total hip replacement. There is good alignment. Postoperative soft tissue changes. RAD/Hip Min 2 Views (Portable) IMPRESSION: Status post right total hip replacement. There is good alignment. Postoperative soft tissue changes. Reading Location: [facility]
--- NOTE | 2025-05-22 09:24 | PCM.POST.ANE ---
Anesthesia: Postop Eval I Current Vital Signs Temperature: 97.5 F Pulse Rate: 74 Blood Pressure: 104/71 Respiratory Rate: 16 Pulse Ox: 96 Oxygen Delivery Method: Room Air Assessment Airway patent: Yes Spontaneous unlabored respirations: Yes Mental status: Awake and Calm nausea: No Vomiting: No Anesthesia Complication: No Fluid Hydration Crystalloid volume administer (ml): 2,000 Total IV fluid infused: 2,000 Progress Note Anesthesia document: Postop Eval 1 completed: Yes
[2025-05-22] MEDS: LR 1,000 ML - BOLUS POSTOP 999 ML IV (09:33)
[2025-05-22] MEDS: LR 1,000 ML - 125 ML/HR (POST BOLUS) POST OP IV (10:00)
[2025-05-22] MEDS: Ensure Surgery 237 ML LIQUID PO (13:19)
--- NOTE | 2025-05-22 13:32 | PCM.PN.HOSP ---
Subjective Subjective 80-year-old male presented to the hospital for an elective right total hip replacement for osteoarthritis. Tolerated procedure well currently off of oxygen. The only medication he takes is lithium which she will continue Objective Data Objective Data Vital Signs: Vital Signs Temp Pulse Resp BP Pulse Ox O2 Del Method O2 Flow Rate 97.3 F L 64 18 133/71 H 97 Room Air 4 05/22/25 12:06 05/22/25 12:06 05/22/25 12:06 05/22/25 12:06 05/22/25 12:06 05/22/25 12:06 05/22/25 10:06 Oxygen Flow Rate (L/min) 4 Oxygen Delivery Method Room Air Weight: 170 lb 12.8 oz Body Mass Index (BMI) 25.9 Intake & Output: Intake and Output for Last 24 Hours 05/21/25 05/22/25 05/23/25 03:59 03:59 03:59 Intake Total 3550 / 3550 Output Total 300 / 300 Balance 3250 / 3250 Lab / Micro Data 04/27/25 08:45 04/27/25 08:45 Labs: Laboratory Results - last 24 hr 05/22/25 06:04: POC Glucose 84 Micro: Microbiology 04/27/25 08:45 Swab (Method) Nasal Screen MRSA/MSSA - Final Radiography Diagnostic Testing: Radiology Impression Hip X-Ray 05/22/25 09:20 IMPRESSION: Status post right total hip replacement. There is good alignment. Postoperative soft tissue changes. Reading Location: [place] [address] Physical Exam Narrative General: Alert, Oriented x3, Cooperative, No apparent distress HEENT: Atraumatic, PERRLA, EOMI, Normocephalic Oral: Moist Mucosa Neck: Supple, No JVD Lungs: Clear to auscultation, Normal air movement, No rhonchi, No wheeze, No rales Cardiovascular: Regular rate, Regular Rhythm, Normal S1, Normal S2, No murmurs Abdomen: Soft, Non Tender, Non-Distended, No Hepato-splenomegaly Extremities: No edema, Capillary Refill Less than 3 Seconds Skin: Dressing CDI Musculoskeletal: No Tenderness to Palpation of Joints or Extremities Neurological: No focal neurological deficits, moves all extremities to the right lower extremity limited due to surgery Psych/Mental Status: Normal Affect, Appropriate Assessment & Plan Assessment/Plan (1) Status post total hip replacement, right: PLAN: Plan 1. 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 Pain management per primary ? PT/OT ? Discharge planning per primary ? Medically stable ? Will recheck labs in the morning 2. Mood disorder ? On lithium ? Will continue 3. No other medical problems, can hold all of his [id number] vitamins DVT: Per primary Charges/Coding Visit Charges Office Visits / Consults: [id number] OV L4 New 45min
--- NOTE | 2025-05-22 14:08 | CASEMGMT ---
KHAN Met with patient to complete KHAN form. KHAN form and its content were verbally explained and patient's questions were answered to the best of my ability.? Patient voiced understanding and signed KHAN form.? Patient provided a copy of signed KHAN form and original placed in patient's chart.? Patient had no further questions. Sonali Reeder, Discharge Planning Asst
[2025-05-22] MEDS: Cefazolin 1 GM/50 ML BAG IV ×2 (15:58→23:43)
--- NOTE | 2025-05-22 16:39 | POSTOPAN2_ITS ---
Anesthesia Postop Eval I Sum Postop Eval Completion status Anesthesia document: Postop Eval 1 completed: Yes Anesthesia Postop Eval I Summary Anesthesia Postop Eval I Summary: Anesthesia Postop Eval I: Assessment Summary Airway patent Yes 05/22/25 09:25 [email or web address] Spontaneous unlabored Yes 05/22/25 09:25 [email or web address] respirations Mental status Awake,Calm 05/22/25 09:25 [email or web address] nausea No 05/22/25 09:25 [email or web address] Vomiting No 05/22/25 09:25 [email or web address] Anesthesia Postop Eval I: Fluid Summary Crystalloid volume administer 2,000 05/22/25 09:25 [email or web address] (ml) Colloids volume administered ( ml) Blood Product volume administered (ml) Total IV fluid infused 2,000 05/22/25 09:25 [email or web address] Anesthesia Postop Eval I: Summary Notes Anesthesia Complication No 05/22/25 09:25 [email or web address] Anesthesia Complication Comment: Post-operative progress note Anesthesia: Postop Eval II Evaluation Mental status: Awake Pain Level: 0 nausea: No Vomiting: No Complications Anesthesia Complication: No
--- NOTE | 2025-05-22 16:39 | PCM.POSTANE2 ---
Anesthesia Postop Eval I Sum Postop Eval Completion status Anesthesia document: Postop Eval 1 completed: Yes Anesthesia Postop Eval I Summary Anesthesia Postop Eval I Summary: Anesthesia Postop Eval I: Assessment Summary Airway patent Yes 05/22/25 09:25 [email or web address] Spontaneous unlabored Yes 05/22/25 09:25 [email or web address] respirations Mental status Awake,Calm 05/22/25 09:25 [email or web address] nausea No 05/22/25 09:25 [email or web address] [email or web address] Vomiting No 05/22/25 09:25 [email or web address] Anesthesia Postop Eval I: Fluid Summary Crystalloid volume administer 2,000 05/22/25 09:25 [email or web address] (ml) Colloids volume administered ( ml) Blood Product volume administered (ml) Total IV fluid infused 2,000 05/22/25 09:25 [email or web address] Anesthesia Postop Eval I: Summary Notes Anesthesia Complication No 05/22/25 09:25 [email or web address] Anesthesia Complication Comment: Post-operative progress note Anesthesia: Postop Eval II Evaluation Mental status: Awake Pain Level: 0 nausea: No Vomiting: No Complications Anesthesia Complication: No
[2025-05-22] MEDS: Senna/Docusate Sodium 1 Tablet 2 TABLET PO (22:09)
[2025-05-23 02:09] VITALS: BP 102/59; PULSE 75; RESP 16; TEMP 36.9; O2SAT 94
[2025-05-23 02:17] VITALS: BMI 26.0
[2025-05-23 06:00] VITALS: BP 104/67; PULSE 67; RESP 16; TEMP 36.6; O2SAT 97
[2025-05-23 06:06] VITALS: BMI 26.0
[2025-05-23 06:48] LABS: Hematocrit 31.0 % (40-54); Hemoglobin 10.6 g/dL (13.0-16.5); Immature Granulocytes Count 0.050 X10^3/uL (0.0-0.0); Mean Corp Hgb Conc 34.2 g/dL (32-36); Mean Corpuscular Volume 86.8 fL (80-94); Mean Platelet Vol. 9.7 fl (6.2-12.0); NRBC Flagged by Analyzer 0 % (0-5); Platelet Count 125 K/mm3 (150-450); RBC Distribution Width CV 14.5 % (11.6-14.6); RBC Distribution Width SD 46.5 fl (35.1-43.9); Red Blood Count 3.57 M/mm3 (4.6-6.2); White Blood Count 14.5 K/mm3 (4.4-11.0)
[2025-05-23 07:09] LABS: Anion Gap 10 (5-15); BUN 14 mg/dL (4-19); BUN/Creat Ratio 15.0 RATIO (10-20); Calcium,Total 8.7 mg/dL (7.6-11.0); Carbon Dioxide 23.4 mmol/L (21.0-32.0); Chloride 105 mmol/L (98-108); Estimated Creatinine Clearance 60.55 ml/min (50-250); Glucose 114 mg/dL (70-99); Potassium 4.7 mmol/L (3.3-5.1)
[2025-05-23 08:00] VITALS: BP 113/73; PULSE 72; RESP 18; TEMP 36.8; O2SAT 95
--- NOTE | 2025-05-23 08:34 | PN.HOSP_ITS ---
Subjective Subjective Doing well, no issues overnight. Pain is controlled Objective Data Objective Data Vital Signs: Vital Signs Temp Pulse Resp BP Pulse Ox O2 Del Method O2 Flow Rate 97.9 F 67 16 104/67 97 Room Air 4 05/23/25 06:00 05/23/25 06:00 05/23/25 06:00 05/23/25 06:00 05/23/25 06:00 05/23/25 06:00 05/22/25 10:06 Oxygen Flow Rate (L/min) 4 Oxygen Delivery Method Room Air Weight: 170 lb 12.8 oz Body Mass Index (BMI) 25.9 Intake & Output: Intake and Output for Last 24 Hours 05/22/25 05/23/25 05/24/25 03:59 03:59 03:59 Intake Total 5880 / 5880 230 / 230 Output Total 300 / 300 Balance 5580 / 5580 230 / 230 Lab / Micro Data 05/23/25 06:40 05/23/25 06:40 Labs: Laboratory Results - last 24 hr 05/23/25 06:40: WBC 14.5 H, RBC 3.57 L, Hgb 10.6 L, Hct 31.0 L, MCV 86.8, MCH 29.7, MCHC 34.2, RDW Std Deviation 46.5 H, RDW Coeff of Tnaia 14.5, Plt Count 125 L, MPV 9.7, Immature Gran % (Auto) 0.300, Neut % (Auto) 82.6 H, Lymph % (Auto) 9.1 L, [place] % (Auto) 7.8, Eos % (Auto) 0.1, Baso % (Auto) 0.1, Absolute Neuts (auto) 11.9 H, Absolute Lymphs (auto) 1.32, Nucleated RBC % 0, Sodium 138, Potassium 4.7, Chloride 105, Carbon Dioxide 23.4, Anion Gap 10, BUN 14, Creatinine 0.91, Estim Creat Clear Calc 60.55, Est GFR (MDRD) Non-Af 84, BUN/Creatinine Ratio 15.0, Glucose 114 H, Calcium 8.7 Micro: Microbiology 04/27/25 08:45 Swab (Method) Nasal Screen MRSA/MSSA - Final Radiography Diagnostic Testing: Radiology Impression Hip X-Ray 05/22/25 08:10 IMPRESSION: Anatomic alignment following right hip replacement. Correlate with procedural note. Reading Location: [facility] Hip X-Ray 05/22/25 09:20 IMPRESSION: Status post right total hip replacement. There is good alignment. Postoperative soft tissue changes. Reading Location: [facility] Physical Exam Narrative General: Alert, Oriented x3, Cooperative, No apparent distress HEENT: Atraumatic, PERRLA, EOMI, Normocephalic Oral: Moist Mucosa Neck: Supple, No JVD Lungs: Clear to auscultation, Normal air movement, No rhonchi, No wheeze, No rales Cardiovascular: Regular rate, Regular Rhythm, Normal S1, Normal S2, No murmurs Abdomen: Soft, Non Tender, Non-Distended, No Hepato-splenomegaly Extremities: No edema, Capillary Refill Less than 3 Seconds Skin: Dressing CDI Musculoskeletal: No Tenderness to Palpation of Joints or Extremities Neurological: No focal neurological deficits, moves all extremities to the right lower extremity limited due to surgery Psych/Mental Status: Normal Affect, Appropriate Assessment & Plan Assessment/Plan (1) Status post total hip replacement, right: PLAN: Plan 1. 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 Pain management per primary ? PT/OT ? Discharge planning per primary ? Medically stable for discharge, will sign off ?Reactive leukocytosis 2. Mood disorder ? On lithium ? Will continue 3. No other medical problems, can hold all of his [id number] vitamins DVT: Per primary Charges/Coding Visit Charges Office Visits / Consults: [id number] OV L3 Est 20min
[2025-05-23] MEDS: Ensure Surgery 237 ML LIQUID PO (09:40)
[2025-05-23] MEDS: Senna/Docusate Sodium 1 Tablet 2 TABLET PO (09:41)
[2025-05-23 10:06] VITALS: BMI 26.0
--- NOTE | 2025-05-23 11:38 | PN.ORTHO_ITS ---
Subjective Subjective Patient is sitting comfortably in bedside chair upon examination. Patient states his pain is adequately controlled at this time and he is feeling really well. Patient states that he has been comfortable with going home at this point. Patient states that he does have help at home from his . Patient denies any new nausea vomiting dizziness. Patient denies any new numbness or tingling. Patient denies any shortness of breath, chest pain, calf pain. Patient denies any adverse events overnight. Objective Data Objective Data Vital Signs: Vital Signs Temp Pulse Resp BP Pulse Ox O2 Del Method O2 Flow Rate 98.3 F 72 18 113/73 95 Room Air 4 05/23/25 08:00 05/23/25 08:00 05/23/25 08:00 05/23/25 08:00 05/23/25 08:00 05/23/25 10:00 05/22/25 10:06 Oxygen Flow Rate (L/min) 4 Oxygen Delivery Method Room Air Weight: 77.474 kg Body Mass Index (BMI) 25.9 Intake & Output: Intake and Output for Last 24 Hours 05/21/25 05/22/25 05/23/25 23:59 23:59 23:59 Intake Total 5450 / 5830 660 / 660 Output Total 300 / 300 Balance 5150 / 5530 660 / 660 Lab / Micro Data 05/23/25 06:40 05/23/25 06:40 Labs: Laboratory Results - last 24 hr 05/23/25 06:40: WBC 14.5 H, RBC 3.57 L, Hgb 10.6 L, Hct 31.0 L, MCV 86.8, MCH 29.7, MCHC 34.2, RDW Std Deviation 46.5 H, RDW Coeff of Tania 14.5, Plt Count 125 L, MPV 9.7, Immature Gran % (Auto) 0.300, Neut % (Auto) 82.6 H, Lymph % (Auto) 9.1 L, [place] % (Auto) 7.8, Eos % (Auto) 0.1, Baso % (Auto) 0.1, Absolute Neuts (auto) 11.9 H, Absolute Lymphs (auto) 1.32, Nucleated RBC % 0, Sodium 138, Potassium 4.7, Chloride 105, Carbon Dioxide 23.4, Anion Gap 10, BUN 14, Creatinine 0.91, Estim Creat Clear Calc 60.55, Est GFR (MDRD) Non-Af 84, BUN/Creatinine Ratio 15.0, Glucose 114 H, Calcium 8.7 Micro: Microbiology 04/27/25 08:45 Swab (Method) Nasal Screen MRSA/MSSA - Final Radiography Diagnostic Testing: Radiology Impression Hip X-Ray 05/22/25 08:10 IMPRESSION: Anatomic alignment following right hip replacement. Correlate with procedural note. Reading Location: [id number] Physical Exam Narrative JEN hose in place bilaterally SCDs in place bilaterally Dressing is clean, dry, intact. Dorsiflexion and plantarflexion are performed actively without pain or restriction Sensation intact light touch. Neurovascularly intact overall. Negative Homans bilaterally. Const alert, oriented x3 and no apparent distress Assessment & Plan Assessment/Plan (1) Status post total hip replacement, right: PLAN: Status post anterior right total hip replacement day 1. 1. DVT prophylaxis: Patient will be using aspirin 81 mg twice daily for 4 weeks postoperatively. Patient was educated to wear JEN hose for 2 weeks postoperatively. 2. Pain medications: Patient was instructed to take Tylenol 1000 mg every 8 hours, meloxicam for 30 days, oxycodone as needed for postoperative pain control. Patient was educated on use of meloxicam and not to take any other anti-inflammatory medications while taking meloxicam. Patient voiced understanding. 3. Constipation: Patient was instructed to take senna as instructed until her first bowel movement to decrease risk of impaction. Patient was instructed if they have not had a bowel movement in 3 days to call our office for reevaluation 4: Physical therapy: Patient is weightbearing as tolerated with walker and physical therapy. Patient does have outpatient physical therapy established. Patient will continue to follow anterior hip precautions. 5. H&H: 10.6/31.0. Vital signs are stable and patient is afebrile. We do not have to start anemia protocol at this point. 6. Reactive leukocytosis: White blood cell count is currently 14.5. Patient did receive Decadron intraoperatively. Vital signs are stable and afebrile at this time. 7. Dressings: Patient was educated to remove dressings on postoperative day 5. Patient was educated she can leave open to air following removal of the dressings. Patient was educated no soaking or submerging for 6 weeks postoperatively. 8. Patient will follow-up for postoperative instructions. 9. Medicine is involved for safe discharge. 10. Disposition: Patient is okay for discharge as long as pain maintains adequately controlled, patient has worked with in bed well with physical therapy, patient is cleared from medicine doctors instructions. Patient does have outpatient physical therapy scheduled. Patient will continue to be weightbearing as tolerated with a walker following anterior hip precautions. Patient does have a 2-week follow-up visit scheduled with our office. Patient's medications will be sent to patient's pharmacy of choice which is [facility] pharmacy. Patient was educated there is no driving for 6 weeks postoperatively. Patient was encouraged to call with any questions, concerns, new problems.
--- NOTE | 2025-05-23 11:44 | DCINST_ITS ---
Discharge Instructions DC O2, CPAP, BIPAP needs Home O2 Discharge instructions: No Dressing / Incision Discharge Activity: May Not Drive (No driving for 6 weeks postoperatively.) Weight Bearing Status: Weight bearing as tolerated (With walker. Follow a nterior hip precautions.) Keep extremity elevated above heart level: Right Leg (Ice and elevate as needed.) Dressing / Incision Call your doctor if your incision/area has: Continuous Slow Oozing, Sudden Increased Bleeding, Increased Pain/ Swelling, Increased Redness, Foul Smelling Discharge and Swelling at the incision site Call your doctor if you observe: Fever of 101 or Higher, Coldness, Increased Pain, Numbness or Tingling, Change in Color, Inability to urinate, Inability to have a bowel movement, Using more than 1 pad per hour, Shortness of breath, Dizziness, Fainting spells, Swelling in the ankles, Chest pain, Increased palpitations (irregular heartbeat), Calf discomfort and Uncontrolled pain Remove Dressing in: 5 days (Remove dressing on day 5 postop. As long as incision is clean, dry, intact may leave open to air.) Cleanse incision/area with: Soap & Water (Gentle soap and water in the shower.) Additional Dressing/Incision Instructions:: No soaking or submerging for 6 weeks postoperatively. No lotions, salves, oils for 6 weeks postoperatively. Weightbearing as tolerated with walker. Follow anterior precautions. [facility] report was reviewed today. Follow Up Care Test Results: Test results from this visit will be discussed in further detail at your follow- up appointment, if applicable. Discharge Plan Admission Admit Date/Time: 05/22/25 06:58 Attending Provider: Omi Patel Primary Care Provider: Nicole Flynn NP Consulting Providers: James Ramirez Discharge Orders/Prescriptions Prescriptions: New acetaminophen 500 mg Tablet 1,000 mg PO Q8 Qty: 0 0RF Rx Instructions: 1000 mg every 8 hours. meloxicam 7.5 mg Tablet 7.5 mg PO BID 30 Days Qty: 60 0RF Rx Instructions: Do not take with any other anti-inflammatory medications. famotidine 20 mg Tablet 20 mg PO DAILY 30 Days Qty: 30 0RF aspirin 81 mg Tablet,Chewable 81 mg PO BID Qty: 0 0RF Rx Instructions: 81 mg aspirin twice daily for 4 weeks postoperatively. oxycodone 5 mg Tablet 5 - 10 mg PO Q4H PRN PRN (Reason: As needed for pain.) 7 Days Qty: 42 0RF sennosides-docusate sodium [Stimulant Laxative Plus] 8.6-50 mg Tablet 2 tab PO BID Qty: 0 0RF Rx Instructions: Take until first bowel movement and then can take as needed. Continued omega 8-aid-rcd-fish oil [Fish Oil] 60-90-500 mg capsule 1 cap PO DAILY vitamin E mixed 400 unit capsule 400 unit PO DAILY Collagen 1500 Plus C 500 mg-800 mcg- 50 mg capsule 1 cap PO DAILY selenium 200 mcg capsule 200 mcg PO DAILY cholecalciferol (vitamin D3) 25 mcg (1,000 unit) capsule 5,000 unit PO DAILY turmeric 500 mg PO DAILY albuterol sulfate 90 mcg/actuation HFA aerosol inhaler 1 inh inhalation Q4H PRN (Reason: shortness of breath or wheezing) coenzyme Q10 [Co Q-10] 200 mg capsule 200 mg PO DAILY zinc gluconate 50 mg tablet 50 mg PO DAILY boron citrate 3 mg tablet 3 mg PO DAILY chromium 200 mcg tablet 200 mcg PO DAILY Kelp 0.15 mg tablet 150 mcg PO DAILY lithium aspartate 5 mg capsule 5 mg PO DAILY magnesium 200 mg tablet 400 mg PO DAILY vanadyl 10 mg tablet 10 mg PO DAILY Referrals / Follow Up: Jeyson Burr PA [Med Staff - [facility] Practice Prof, Internal Medicine] Disposition Disposition (needs filled in before D/C Order can be placed): Home, Self Care
--- NOTE | 2025-05-23 12:19 | CASEMGMT ---
Noted therapy DUY celestin CM into pt room, pt sitting up in chair with at bedside. Pt has a walker in his room that is his and pt has therapy set up at [facility] to start tomorrow. Pt denies any homegoing needs.
[2025-05-23 13:15] VITALS: BP 100/70; PULSE 67; RESP 16; TEMP 37.1; O2SAT 98
--- NOTE | 2025-05-23 14:47 | CHAPLAIN ---
Type of Pastoral Visit _x__ Initial Visit ___ Follow-up Visit ___ On-call Visit ___ General Patient Visit ___ Spiritual Assessment ___ Family Conference ___ Bereavement ___ Rapid Response ___ Code Blue ___ Other (describe below) Pastoral Care Referral From ___ Patient _x__ Family ___ Nurse ___ Physician ___ Shuttle Final Inspector ___ Blasting Clay Miner ___ Other (describe below) Sacrament/Intervention _x__ Active listening ___ Anointing ___ Yazidi ___ Bereavement ___ Communion ___ Catherine exploration ___ ___ Life review _x__ Prayer ___ Reconciliation ___ Sacrament of Sick _x__ Supportive presence ___ Wedding ___ Other (describe below) Pastoral Comments spouse was seen in the hallway and is an acquaintance; offer of support and visit was welcomed; met with patient and gave time to listen and offer a prayer
== END 2025-05-23 13:31 | disposition home or self-care (01) ==
LOC: SDC 09:36 → MS3 09:36
PROVIDERS: Anesthesiology; Admitting Provider Specialist; PCP Nurse Practitioner; Referring Provider Specialist; Visit Provider Specialist
PROC: (CPT 27284; principal; 2025-05-22 07:05)
DX: M16.11 Unilateral primary osteoarthritis, right hip (principal); G25.0 Essential tremor; K21.9 Gastro-esophageal reflux disease without esophagitis; Z79.899 Other long term (current) drug therapy; F39 Unspecified mood [affective] disorder
CPT/HCPCS: 27130; 01214; 36415; 73502; 76000; 80048; 82040; 82962; 83735; 85025; 87081; 93005; 94668; 96365; 96366; 97162; 97165; 97530; 97535; 99221; C1776; G0378